=== PATIENT | female | born 1950 | race Caucasian/White ===

== ENCOUNTER 2017-01-19 13:19 | Emergency (ER) | payer MEDICARE, OTHER ==
--- NOTE | 2017-01-19 13:42 | ERPHSYRPT ---
- History of Present Illness Time Seen by Provider: 01/19/17 13:40 Historian: patient, family Exam Limitations: no limitations Patient Subjective Stated Complaint: PT STATES WHILE DOING HER HAIR TODAY SHE STARTED HAVING CHEST PAIN AND PAIN TO LEFT JAW, NAUSEA Triage Nursing Assessment: PT ALERT, ARRIVED PER WC, RESP EASY, CHEST CLEAR, SKIN W/D/P, NO EDEMA Physician History: 66-year-old female with significant past medical history of coronary artery disease, status post stent placement 6 months ago, came to the emergency room with complaining of left-sided chest pain radiating to the left side of the neck and feeling like going to pass out. She denies any diaphoresis, nausea or vomiting. Patient has stent placement in May 2016. When patient came to the emergency room. Patient was chest pain-free and did not have any other symptoms. Timing/Duration: today Activities at Onset: activity Quality: burning Location: substernal Chest Pain Radiation: jaw, neck Severity of Pain-Max: mild Severity of Pain-Current: none Modifying Factors: Improves With: nothing Aspirin Treatment Today: 81 mg x 1 Allergies/Adverse Reactions: nitrofurantoin macrocrystalline [From Macrodantin] Allergy (Mild, Verified 01/19 13:28) morphine Adverse Reaction (Mild, Verified 01/19/17 13:28) Home Medications: Amlodipine Besylate [Norvasc] 2.5 mg PO DAILY 05/30/14 [History] Aspirin [Aspirin EC] 81 mg PO DAILY 05/30/14 [History] Atorvastatin Calcium [Lipitor] 10 mg PO DAILY 05/30/14 [History] Clopidogrel Bisulfate 75 mg [PLAVIX 75 MG Tablet] 75 mg PO DAILY 05/30/14 [History] Potassium Chloride 10 Meq Tab* [Klor Con 10 MEQ] 10 meq PO DAILY 05/30/14 [ History] Hx Tetanus, Diphtheria Vaccination/Date Given: Yes Hx Influenza Vaccination/Date Given: No Hx Pneumococcal Vaccination/Date Given: No Immunizations Up to Date: Yes - Review of Systems Constitutional: No Fever, No Chills Eyes: No Symptoms Ears, Nose, & Throat: No Symptoms Respiratory: No Cough, No Dyspnea Cardiac: No Chest Pain, No Edema, No Syncope Abdominal/Gastrointestinal: No Abdominal Pain, No Nausea, No Vomiting, No Diarrhea Genitourinary Symptoms: No Dysuria Musculoskeletal: No Back Pain, No Neck Pain Skin: No Rash Neurological: No Dizziness, No Focal Weakness, No Sensory Changes Psychological: No Symptoms Endocrine: No Symptoms All Other Systems: Reviewed and Negative - Past Medical History Pertinent Past Medical History: Yes Neurological History: No Pertinent History ENT History: No Pertinent History Cardiac History: Coronary Artery Disease, Hypertension, Myocardial Infarction ( [place]) Respiratory History: No Pertinent History Endocrine Medical History: No Pertinent History Musculoskeletal History: No Pertinent History GI Medical History: No Pertinent History History: No Pertinent History Psycho-Social History: No Pertinent History Female Reproductive Disorders: No Pertinent History Other Medical History: recently SOB schedlued for pulmonary function test tomorrow - Past Surgical History Past Surgical History: Yes Neuro Surgical History: No Pertinent History Cardiac: Cardiac Catheterization, Cardiac Stent Respiratory: No Pertinent History Gastrointestinal: No Pertinent History Genitourinary: No Pertinent History Musculoskeletal: Orthopedic Surgery Female Surgical History: Hysterectomy Other Surgical History: ORTHO CHILD--LT ARM - Social History Smoking Status: Never smoker Exposure to second hand smoke: No Drug Use: none Patient Lives Alone: No - Female History Hx Last Menstrual Period: POST - Nursing Vital Signs Nursing Vital Signs: Initial Vital Signs Temperature 98.2 F 01/19/17 13:20 Pulse Rate 67 01/19/17 13:20 Blood Pressure 187/91 01/19/17 13:20 O2 Sat by Pulse Oximetry 96 01/19/17 13:20 Pain Scale Pain Intensity 5 - Physical Exam General Appearance: no apparent distress, alert Eye Exam: PERRL/EOMI, eyes nml inspection Ears, Nose, Throat Exam: normal ENT inspection, moist mucous membranes Neck Exam: normal inspection, non-tender, supple, full range of motion Respiratory Exam: normal breath sounds, lungs clear, No respiratory distress Cardiovascular Exam: regular rate/rhythm, normal heart sounds Gastrointestinal/Abdomen Exam: soft, No tenderness, No mass Back Exam: normal inspection, No CVA tenderness, No vertebral tenderness Extremity Exam: normal inspection, normal range of motion Neurologic Exam: alert, oriented x 3, cooperative, normal mood/affect, sensation nml, No motor deficits Skin Exam: normal color, warm, dry SpO2: 96 Oxygen Delivery: Room Air - Course Nursing assessment & vital signs reviewed: Yes EKG Interpreted by Me: Sinus Rhythm - Radiology Exams Chest X-ray Interpretation: Reviewed by me, Negative Ordered Tests: Active Orders 24 hr Category Date Time Status Benefits Officer STAT Care 01/19/17 13:34 Active Clean Catch Urine Specimen STAT Care 01/19/17 14:36 Active EKG-ER Only STAT Care 01/19/17 13:33 Active Oxygen-ED Only NASAL CANNULA 2 lpm Care 01/19/17 13:33 Active CHEST 1 VIEW (PORTABLE) Stat Exams 01/19/17 13:34 Taken CBC W DIFF Stat Lab 01/19/17 13:30 Completed CMP Stat Lab 01/19/17 13:30 Completed NT PRO BNP Stat Lab 01/19/17 13:30 Completed TROPONIN Q3H Lab 01/19/17 13:45 Completed TROPONIN Q3H Lab 01/19/17 16:45 Ordered TROPONIN Q3H Lab 01/19/17 19:45 Ordered TROPONIN Q3H Lab 01/19/17 22:45 Ordered TROPONIN Q3H Lab 01/20/17 01:45 Ordered UA W/ MICROSCOPIC Stat Lab 01/19/17 15:17 Completed Medication Summary Generic Name Dose Route Start Last Admin Trade Name Freq PRN Reason Stop Dose Admin Sodium Chloride 1,000 mls @ 100 mls/hr 01/19/17 13:45 01/19/17 14:02 Sodium Chloride 0.9% 1000 Ml IV 02/18/17 13:44 100 mls/hr .Q10H CINTHYA Administration Lab/Rad Data: Laboratory Result Diagrams 01/19/17 13:30 01/19/17 13:30 Laboratory Results 01/19/17 01/19/17 01/19/17 Range/Units 15:17 13:45 13:30 WBC (4.0-10.5) K/mm3 RBC (4.1-5.4) M/mm3 Hgb (12.0-16.0) gm/dl Hct (35-47) % MCV (78-100) fl MCH (26-32) pg MCHC (32-36) g/dl RDW (11.5-14.0) % Plt Count (150-450) K/mm3 MPV (6-9.5) fl Gran % (36.0-66.0) % Lymphocytes % (24.0-44.0) % Monocytes % (0.0-12.0) % Eosinophils % (0.00-5.0) % Basophils % (0.0-0.4) % Basophils # (0-0.4) Sodium 141 (136-145) mEq/L Potassium 4.3 (3.5-5.1) mEq/L Chloride 105 (98-107) mEq/L Carbon Dioxide 28.0 (21-32) mEq/L Anion Gap 12.5 (5-15) MEQ/L BUN 17 (9-20) mg/dL Creatinine 0.78 (0.55-1.30) mg/dl Estimated GFR > 60 ML/MIN Glucose 91 (70-110) MG/DL Calcium 9.3 (8.5-10.1) mg/dL Total Bilirubin 0.30 (0.2-1.0) mg/dL AST 24 (15-37) U/L ALT 36 (12-78) U/L Alkaline Phosphatase 113 (46-116) U/L Troponin I < 0.017 (0.000-0.056) ng/ml NT-Pro-B Natriuret Pep 210 H (0-125) pg/ml Serum Total Protein 7.8 (6.4-8.2) gm/dL Albumin 4.3 (3.4-5.0) g/dL Ur Collection Type CLEAN CATCH Urine Color YELLOW (YELLOW) Urine Appearance CLEAR (CLEAR) Urine pH 7.0 (5-6) Ur Specific [place] 1.010 (1.005-1.025) Urine Protein NEGATIVE (Negative) Urine Ketones NEGATIVE (NEGATIVE) Urine Blood NEGATIVE (0-5) [place]/ul Urine Nitrite NEGATIVE (NEGATIVE) Urine Bilirubin NEGATIVE (NEGATIVE) Urine Urobilinogen NORMAL (0-1) mg/dL Ur Leukocyte Esterase 1+ (NEGATIVE) Urine Microscopic RBC 0-2 (0-2) /HPF Urine Microscopic WBC 2-5 (0-5) /HPF Ur Epithelial Cells FEW (FEW) /HPF Urine Bacteria FEW (NEGATIVE) /HPF Urine Culture Reflexed NO (NO) Urine Glucose NEGATIVE (NEGATIVE) mg/dL Specimen Received 01-19 1515 01/19/17 Range/Units 13:30 WBC 6.0 (4.0-10.5) K/mm3 RBC 4.70 (4.1-5.4) M/mm3 Hgb 14.5 (12.0-16.0) gm/dl Hct 45.1 (35-47) % MCV 96.0 (78-100) fl MCH 30.9 (26-32) pg MCHC 32.2 (32-36) g/dl RDW 13.2 (11.5-14.0) % Plt Count 237 (150-450) K/mm3 MPV 10.1 H (6-9.5) fl Gran % 70.2 H (36.0-66.0) % Lymphocytes % 15.9 L (24.0-44.0) % Monocytes % 11.4 (0.0-12.0) % Eosinophils % 1.8 (0.00-5.0) % Basophils % 0.7 (0.0-0.4) % Basophils # 0.04 (0-0.4) Sodium (136-145) mEq/L Potassium (3.5-5.1) mEq/L Chloride (98-107) mEq/L Carbon Dioxide (21-32) mEq/L Anion Gap (5-15) MEQ/L BUN (9-20) mg/dL Creatinine (0.55-1.30) mg/dl Estimated GFR ML/MIN Glucose (70-110) MG/DL Calcium (8.5-10.1) mg/dL Total Bilirubin (0.2-1.0) mg/dL AST (15-37) U/L ALT (12-78) U/L Alkaline Phosphatase (46-116) U/L Troponin I (0.000-0.056) ng/ml NT-Pro-B Natriuret Pep (0-125) pg/ml Serum Total Protein (6.4-8.2) gm/dL Albumin (3.4-5.0) g/dL Ur Collection Type Urine Color (YELLOW) Urine Appearance (CLEAR) Urine pH (5-6) Ur Specific [place] (1.005-1.025) Urine Protein (Negative) Urine Ketones (NEGATIVE) Urine Blood (0-5) [place]/ul Urine Nitrite (NEGATIVE) Urine Bilirubin (NEGATIVE) Urine Urobilinogen (0-1) mg/dL Ur Leukocyte Esterase (NEGATIVE) Urine Microscopic RBC (0-2) /HPF Urine Microscopic WBC (0-5) /HPF Ur Epithelial Cells (FEW) /HPF Urine Bacteria (NEGATIVE) /HPF Urine Culture Reflexed (NO) Urine Glucose (NEGATIVE) mg/dL Specimen Received - Progress Progress: improved Air Movement: good Blood Culture(s) Obtained: No Antibiotics given: No Counseled pt/family regarding: lab results, diagnosis, need for follow-up, rad results - Departure Time of Disposition: 15:37 Departure Disposition: Home Clinical Impression: Chest pain radiating to jaw UTI (urinary tract infection) Qualifiers: Urinary tract infection type: acute cystitis Hematuria presence: without hematuria Qualified Code(s): N30.00 - Acute cystitis without hematuria Condition: Stable Critical Care Time: Yes Critical Care Time(excluding separately billable procedures): 30-74 minutes Referrals: BECKY ESTES MD [Primary Care Provider] - Instructions: Angina Additional Instructions: URINARY TRACT INFECTION 1. You will need to drink plenty of fluids in order to keep your urinary system flushed. These fluids should mainly consist of water and juices. 2. Take medications as directed. You need to completely finish any antiobiotic prescription given. 3. Try to avoid coffee, tea, alcohol, and seasoned foods as they may cause bladder irritation. 4. If signs and symptoms persist after 3-4 days, you will need to follow up with your family physician. 5. Female Patients: A. Avoid intercourse for 3-4 days. B. Empty bladder before and after intercourse to reduce risk of re- infection. C. After emptying bladder, wipe from front to back to reduce the risk of re- infection. Please follow the instructions given to you. Please take your medication as prescribed if given. If symptoms recur or get worse, come back to the emergency room if you cannot reach your primary care physician, or call your primary care physician for an appointment. Again if your symptoms get worse, come back to the emergency room. Thanks for visiting emergency room, and let us take care of you. Prescriptions: Levofloxacin [Levaquin] 250 mg PO DAILY #5 tablet
[2017-01-19 13:45] LABS: BASOPHIL % 0.7 % (0.0-0.4); Eosinophil % 1.8 % (0.00-5.0); Granulocytes % 70.2 % (36.0-66.0); Lymphocytes % 15.9 % (24.0-44.0); Mean Corpuscular Hemoglobin 30.9 pg (26-32); Mean Platelet Volume 10.1 fl (6-9.5); Monocytes % 11.4 % (0.0-12.0); Platelet Count 237 K/mm3 (150-450); Red Cell Distribution Width 13.2 % (11.5-14.0)
[2017-01-19] MEDS ORDERED: Sodium Chloride 0.9% 1000 ML 1,000 ML IV SCH (13:45)
[2017-01-19] MEDS ORDERED: Sodium Chloride 0.9% 1000 ML 1,000 ML ONE (13:56)
[2017-01-19 14:04] LABS: ALBUMIN 4.3 g/dL (3.4-5.0); ALKALINE PHOSPHATASE 113 U/L (46-116); ANION GAP 12.5 MEQ/L (5-15); BLOOD UREA NITROGEN 17 mg/dL (9-20); CHLORIDE 105 mEq/L (98-107); Glucose 91 MG/DL (70-110); Potassium 4.3 mEq/L (3.5-5.1); SGOT/AST 24 U/L (15-37); SGPT/ALT 36 U/L (12-78); SODIUM 141 mEq/L (136-145); Total Protein 7.8 gm/dL (6.4-8.2)
[2017-01-19 15:00] VITALS: BP 156/76; PULSE 76
[2017-01-19 15:18] LABS: Bilirubin NEGATIVE (NEGATIVE); Blood NEGATIVE Ery/ul (0-5); COMPLETE URINE MICROSCOPIC? YES; Collection Type CLEAN CATCH; Glucose NEGATIVE (NEGATIVE); Leukocyte Esterase 1+ (NEGATIVE)
[2017-01-19 15:27] LABS: ADD URINE CULTURE? NO (NO); Bacteria FEW /HPF (NEGATIVE); Epithelial Cells FEW /HPF (FEW)
[2017-01-19 15:38] VITALS: O2SAT 96
--- NOTE | 2017-01-19 21:46 | XRAY ---
Indication: Chest pain. Comparison: July 19, 2015. Portable chest again demonstrates minimal bibasilar atelectasis/scarring and right hemidiaphragm elevation. Remaining lungs clear. Heart is not enlarged. Vascularity normal. Bony thorax intact. Impression: Stable nonacute chest with chronic features.
== END 2017-01-19 15:48 | disposition home or self-care (01) ==
LOC: ED 13:19
DX: N30.00 Acute cystitis without hematuria (principal); R07.9 Chest pain, unspecified; R68.84 Jaw pain; I25.2 Old myocardial infarction; I25.10 Atherosclerotic heart disease of native coronary artery without angina pectoris; I10 Essential (primary) hypertension; Z79.899 Other long term (current) drug therapy
CPT/HCPCS: 36415; 71010; 80053; 81000; 83880; 84484; 85025; 93005; 93041; 96360; 96365; 99284

== ENCOUNTER 2017-11-01 21:03 | Emergency (ER) | payer MEDICARE, OTHER | END 2017-11-01 21:09 | disposition left against medical advice (07) | LOC: ED 21:03 | DX: Z53.21 Procedure and treatment not carried out due to patient leaving prior to being seen by health care provider (principal) | CPT/HCPCS: 99281 ==

== ENCOUNTER 2018-01-16 12:18 | Emergency (ER) | payer MEDICARE, OTHER ==
--- NOTE | 2018-01-16 13:00 | ERPHSYRPT ---
- History of Present Illness Time Seen by Provider: 01/16/18 12:54 Source: patient Exam Limitations: no limitations Patient Subjective Stated Complaint: low abdominal pain x 3 days with c/o urinary symptoms of frequency and discomfort when urinating Triage Nursing Assessment: alert and in no distress. staets pain to lower abd x 3 days has dusurai and frequency. was seen at [facility] they sent her here to ER for further evaluation. pain on palpation. did have a u/a at [facility] prior to coming here. denies flank pain here. no nausea /vomiting. denies fever. Physician History: The patient is a 67-year-old female complaining of urinary discomfort and decreased urine output for 3 days. She has pain in the suprapubic region that has been worsening. She has some low back pain as well. She thinks she has a UTI. She went to [facility] and was sent here because of their concern for a kidney stone. Her past medical history is significant for kidney stone, UTI, hypertension, high cholesterol, CAD, and cardiac stents. Timing/Duration: day(s) (3), gradual onset, worse Activites at Onset: none Quality: aching Onset Location: abdominal pain (suprapubic) Pain Radiation: none Severity of Pain-Max: moderate Severity of Pain-Current: moderate Prior abdominal problems: UTI Sexual intercourse history: non-contributory Modifying Factors: Improves With: nothing Associated Symptoms: abdominal pain, dysuria Allergies/Adverse Reactions: nitrofurantoin macrocrystalline [From Macrodantin] Allergy (Mild, Verified 01/16 13:01) morphine Adverse Reaction (Mild, Verified 01/16/18 13:01) Home Medications: Amlodipine Besylate [Norvasc] 2.5 mg PO DAILY 05/30/14 [History] Aspirin [Aspirin EC] 81 mg PO DAILY 05/30/14 [History] Atorvastatin Calcium [Lipitor] 10 mg PO DAILY 05/30/14 [History] Clopidogrel Bisulfate 75 mg [PLAVIX 75 MG Tablet] 75 mg PO DAILY 05/30/14 [History] Potassium Chloride 10 Meq Tab* [Klor Con 10 MEQ] 10 meq PO DAILY 05/30/14 [ History] Hx Tetanus, Diphtheria Vaccination/Date Given: Yes Hx Influenza Vaccination/Date Given: No Hx Pneumococcal Vaccination/Date Given: No - Review of Systems Constitutional: No Fever, No Chills Eyes: No Symptoms Ears, Nose, & Throat: No Symptoms Respiratory: No Cough, No Dyspnea Cardiac: No Chest Pain, No Edema, No Syncope Abdominal/Gastrointestinal: Abdominal Pain, No Nausea, No Vomiting, No Diarrhea Genitourinary Symptoms: Dysuria Musculoskeletal: No Back Pain, No Neck Pain Skin: No Rash Neurological: No Dizziness, No Focal Weakness, No Sensory Changes Psychological: No Symptoms Endocrine: No Symptoms Hematologic/Lymphatic: No Symptoms Immunological/Allergic: No Symptoms All Other Systems: Reviewed and Negative - Past Medical History Pertinent Past Medical History: Yes Neurological History: No Pertinent History ENT History: No Pertinent History Cardiac History: Coronary Artery Disease, Hypertension, Myocardial Infarction ( [place]) Respiratory History: No Pertinent History Endocrine Medical History: No Pertinent History Musculoskeletal History: No Pertinent History GI Medical History: No Pertinent History History: No Pertinent History Psycho-Social History: No Pertinent History Female Reproductive Disorders: No Pertinent History Other Medical History: recently SOB schedlued for pulmonary function test tomorrow - Past Surgical History Past Surgical History: Yes Neuro Surgical History: No Pertinent History Cardiac: Cardiac Catheterization, Cardiac Stent Respiratory: No Pertinent History Gastrointestinal: No Pertinent History Genitourinary: No Pertinent History Musculoskeletal: Orthopedic Surgery Female Surgical History: Hysterectomy Other Surgical History: ORTHO CHILD--LT ARM - Social History Smoking Status: Never smoker Exposure to second hand smoke: No Drug Use: none Patient Lives Alone: No - Female History Hx Now: No - Nursing Vital Signs Nursing Vital Signs: Initial Vital Signs Temperature 97.4 F 01/16/18 12:34 Pulse Rate 68 01/16/18 12:34 Respiratory Rate 18 01/16/18 12:34 Blood Pressure 156/78 01/16/18 12:34 O2 Sat by Pulse Oximetry 98 01/16/18 12:34 Pain Scale Pain Intensity 5 - Physical Exam General Appearance: no apparent distress, alert Eye Exam: PERRL/EOMI, eyes nml inspection Ears, Nose, Throat Exam: normal ENT inspection, TMs normal, pharynx normal, moist mucous membranes Neck Exam: normal inspection, non-tender, supple, full range of motion Respiratory Exam: normal breath sounds, lungs clear, No respiratory distress Cardiovascular Exam: regular rate/rhythm, normal heart sounds, normal peripheral pulses Gastrointestinal/Abdomen Exam: tenderness (suprapubic) Pelvic Exam: not done Rectal Exam: not done Back Exam: normal inspection, normal range of motion, No CVA tenderness, No vertebral tenderness Extremity Exam: normal inspection, normal range of motion, pelvis stable Neurologic Exam: alert, oriented x 3, cooperative, customer service voice II-XII nml as tested, normal mood/affect, sensation nml, No motor deficits Skin Exam: normal color, warm, dry Lymphatic Exam: No adenopathy SpO2 Interpretation: normal SpO2: 98 Oxygen Delivery: Room Air - CT Exams Abdomen/Pelvis CT Interpretation: Tele-radiologist Report (per Dr Marcelo), diverticulitis Ordered Tests: Active Orders 24 hr Category Date Time Status Clean Catch Urine Specimen STAT Care 01/16/18 13:06 Active ABDOMEN AND PELVIS W/0 CONTRAS [CT] Stat Exams 01/16/18 14:55 Completed BMP Stat Lab 01/16/18 13:40 Completed CBC W DIFF Stat Lab 01/16/18 13:40 Completed CULTURE,URINE Stat Lab 01/16/18 11:53 Received UA W/RFX UR CULTURE Stat Lab 01/16/18 11:53 Completed Lab/Rad Data: Laboratory Result Diagrams 01/16/18 13:40 01/16/18 13:40 Laboratory Results 01/16/18 01/16/18 01/16/18 Range/Units 13:40 13:40 11:53 WBC 7.6 (4.0-10.5) K/mm3 RBC 4.12 (4.1-5.4) M/mm3 Hgb 12.9 (12.0-16.0) gm/dl Hct 40.0 (35-47) % MCV 97.1 (78-100) fl MCH 31.3 (26-32) pg MCHC 32.3 (32-36) g/dl RDW 13.8 (11.5-14.0) % Plt Count 204 (150-450) K/mm3 MPV 10.2 H (6-9.5) fl Gran % 77.4 H (36.0-66.0) % Eos # (Auto) 0.08 (0-0.5) Absolute Lymphs (auto) 0.83 L (1.0-4.6) Absolute Monos (auto) 0.74 (0.0-1.3) Lymphocytes % 10.9 L (24.0-44.0) % Monocytes % 9.7 (0.0-12.0) % Eosinophils % 1.0 (0.00-5.0) % Basophils % 1.0 (0.0-0.4) % Absolute Granulocytes 5.91 (1.4-6.9) Basophils # 0.08 (0-0.4) Sodium 141 (137-145) mmol/L Potassium 4.1 (3.5-5.1) mmol/L Chloride 106 (98-107) mmol/L Carbon Dioxide 25 (22-30) mmol/L Anion Gap 14.1 (5-15) MEQ/L BUN 15 (7-17) mg/dL Creatinine 0.67 (0.52-1.04) mg/dL Estimated GFR > 60.0 ML/MIN Glucose 95 (74-106) mg/dL Calcium 9.1 (8.4-10.2) mg/dL Urine Color YELLOW (YELLOW) Urine Appearance SLIGHTLY CLOUDY (CLEAR) Urine pH 6.0 (5-6) Ur Specific [place] 1.014 (1.005-1.025) Urine Protein NEGATIVE (Negative) Urine Ketones NEGATIVE (NEGATIVE) Urine Blood MODERATE (0-5) [place]/ul Urine Nitrite NEGATIVE (NEGATIVE) Urine Bilirubin NEGATIVE (NEGATIVE) Urine Urobilinogen NEGATIVE (0-1) mg/dL Ur Leukocyte Esterase NEGATIVE (NEGATIVE) Urine WBC (Auto) 3-5 (0-5) /HPF Urine RBC (Auto) 6-10 (0-2) /HPF U Epithel Cells (Auto) RARE (FEW) /HPF Urine Bacteria (Auto) FEW (NEGATIVE) /HPF Urine Mucus (Auto) SLIGHT (NEGATIVE) /HPF Urine Culture Reflexed YES (NO) Urine Glucose NEGATIVE (NEGATIVE) mg/dL - Progress Counseled pt/family regarding: diagnosis, need for follow-up, rad results - Departure Time of Disposition: 15:40 Departure Disposition: Home Clinical Impression: Diverticulitis Condition: Stable Critical Care Time: No Referrals: BECKY ESTES MD [Primary Care Provider] - Additional Instructions: You have diverticulitis of your colon. You were given Rocephin 1 g by IM in the ER. Take Flagyl 500 mg 3 times a day for 10 days. Take ciprofloxacin 500 mg 2 times a day for 10 days. Follow-up with your primary medical doctor next week. Prescriptions: Ciprofloxacin [Cipro 500 MG] 1 tab PO BID #20 tablet Metronidazole [Flagyl] 500 mg PO TID #300 tablet
[2018-01-16 13:22] LABS: Appearance SLIGHTLY CLOUDY (CLEAR); Bilirubin NEGATIVE (NEGATIVE); Blood MODERATE Ery/ul (0-5); Glucose NEGATIVE (NEGATIVE); Ketones NEGATIVE (NEGATIVE); Leukocyte Esterase NEGATIVE (NEGATIVE); Nitrite NEGATIVE (NEGATIVE); Protein,Urine Dip NEGATIVE (Negative); Specific Gravity 1.014 (1.005-1.025); Urobilinogen NEGATIVE mg/dL (0-1)
[2018-01-16 13:50] LABS: Basophil (Absolute #) 0.08 (0-0.4); Eosinophil (Absolute #) 0.08 (0-0.5); Granulocyte Absolute (ANC) 5.91 (1.4-6.9); Granulocytes % 77.4 % (36.0-66.0); Hemoglobin 12.9 gm/dl (12.0-16.0); Lymphocyte (Absolute #) 0.83 (1.0-4.6); Lymphocytes % 10.9 % (24.0-44.0); Mean Cell Volume 97.1 fl (78-100); Mean Corpuscular Hemoglobin 31.3 pg (26-32); Mean Corpuscular Hgb Concent. 32.3 g/dl (32-36); Mean Platelet Volume 10.2 fl (6-9.5); Monocyte (Absolute #) 0.74 (0.0-1.3); Monocytes % 9.7 % (0.0-12.0); Platelet Count 204 K/mm3 (150-450); Red Blood Count 4.12 M/mm3 (4.1-5.4); Red Cell Distribution Width 13.8 % (11.5-14.0); White Blood Count 7.6 K/mm3 (4.0-10.5)
[2018-01-16 14:02] LABS: ANION GAP 14.1 MEQ/L (5-15); BLOOD UREA NITROGEN 15 mg/dL (7-17); CHLORIDE 106 mmol/L (98-107); Calcium 9.1 mg/dL (8.4-10.2); Carbon Dioxide 25 mmol/L (22-30); Creatinine 1 0.67 mg/dL (0.52-1.04); Glucose 95 mg/dL (74-106); Potassium 4.1 mmol/L (3.5-5.1); SODIUM 141 mmol/L (137-145)
[2018-01-16 14:04] VITALS: PULSE 65
--- NOTE | 2018-01-16 15:25 | XRAY ---
Indication: Constipation and difficulty urinating. Multiple contiguous axial images obtained through the abdomen and pelvis without contrast as ordered. Comparison: May 30, 2014. Lung bases again demonstrates mild fibrosis/scarring and right hemidiaphragm elevation. No infiltrate or effusion. Heart is not enlarged. Stable small hiatal hernia. Noncontrasted stomach and bowel loops appear nonobstructed. Again mild diffuse scattered colonic fecal debris throughout. There is now mild sigmoid diverticulosis with distal sigmoid/rectal wall thickening and stranding favoring acute diverticulitis/proctitis. Small free fluid presumed reactive. No walled off fluid collection or free air. Stable 2 subcentimeter gallstones and hysterectomy. Remaining liver, gallbladder, pancreas, spleen, adrenal glands, kidneys, ureters, and bladder appear unremarkable for noncontrast exam. Again minimal aortoiliac calcifications without AAA. Osseous structures intact with minimal degenerative changes throughout the spine. No ventral or inguinal hernias. Impression: 1. New sigmoid diverticulosis with distal sigmoid acute diverticulitis/proctitis and small reactive free fluid. 2. Again fecal stasis, gallstones, small hiatal hernia, and right hemidiaphragm elevation. CT DI 23.57
[2018-01-16] MEDS ORDERED: Rocephin 1000 MG INJ IM ONE (15:40)
[2018-01-16 15:42] VITALS: O2SAT 98
[2018-01-16] MEDS ORDERED: Rocephin 1000 MG INJ ONE (15:43)
[2018-01-16 16:18] VITALS: BP 176/95
== END 2018-01-16 16:18 | disposition home or self-care (01) ==
LOC: ED 12:18
DX: K57.32 Diverticulitis of large intestine without perforation or abscess without bleeding (principal); Z79.01 Long term (current) use of anticoagulants; Z79.899 Other long term (current) drug therapy
CPT/HCPCS: 36415; 74176; 80048; 81001; 85025; 87086; 96372; 99284; J0696

== ENCOUNTER 2018-07-04 20:43 | Emergency (ER) | payer MEDICARE, OTHER ==
[2018-07-04] MEDS ORDERED: Sodium Chloride 0.9% 1000 ML 1,000 ML IV STA (21:25)
[2018-07-04] MEDS ORDERED: Zofran 4 MG/2 ML VIAL IV ONE (21:25)
--- NOTE | 2018-07-04 21:33 | ERPHSYRPT ---
- History of Present Illness Time Seen by Provider: 07/04/18 21:25 Historian: patient, family Exam Limitations: no limitations Patient Subjective Stated Complaint: pt states she has been feeling sick to her stomach since friday and began having lt lower abd pain approx 15 min prior to arrival at er.states she has hx of diverticulitis and this feels like it has in the past. Triage Nursing Assessment: pt alert and oriented, asnwers questions approp. pt ambulatory with steady gait noted. respirations nonlagored with lungs cta. abd soft, tenderness ntoed to lt side. bowel osunds present in all 4 quads. Physician History: 68 y/o white female with h/o diverticulitis X1 in past, presents with left lower quadrant abd pain and assoc nausea and decreased appetite. sx for 2 days. 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 several episodes of diarrhea. pt has taken tylenol with codeine and vicodin in past. however, pt does not want any narcotics at this time. Timing/Duration: day(s) (2 ) Activities at Onset: none Quality: sharpness, stabbing Abdominal Pain Onset Location: LLQ Pain Radiation: no radiation Severity of Pain-Max: moderate Severity of Pain-Current: mild Modifying Factors: Improves With: nothing Associated Symptoms: diarrhea, loss of appetite, nausea, No chest pain, No diaphoresis, No shortness of breath, No vomiting Previous symptoms: same symptoms as today Allergies/Adverse Reactions: nitrofurantoin macrocrystalline [From Macrodantin] Allergy (Mild, Verified 07/04 21:13) morphine Adverse Reaction (Mild, Verified 07/04/18 21:13) Home Medications: Aspirin [Aspirin EC] 81 mg PO DAILY 05/30/14 [History] Atorvastatin Calcium [Lipitor] 10 mg PO DAILY 05/30/14 [History] Clopidogrel Bisulfate 75 mg [PLAVIX 75 MG Tablet] 75 mg PO DAILY 05/30/14 [History] Potassium Chloride 10 Meq Tab* [Klor Con 10 MEQ] 10 meq PO DAILY 05/30/14 [ History] Carvedilol 6.25 mg [Coreg 6.25 MG] 6.25 mg PO BID 07/04/18 [History] Hx Tetanus, Diphtheria Vaccination/Date Given: Yes Hx Influenza Vaccination/Date Given: No Hx Pneumococcal Vaccination/Date Given: No Immunizations Up to Date: Yes - Review of Systems Constitutional: No Symptoms Eyes: No Symptoms Ears, Nose, & Throat: No Symptoms Respiratory: No Symptoms Cardiac: No Symptoms Abdominal/Gastrointestinal: Abdominal Pain (llq), Nausea, Diarrhea, Appetite Changes, No Vomiting Genitourinary Symptoms: No Symptoms Musculoskeletal: No Symptoms Skin: No Symptoms Neurological: No Symptoms Psychological: No Symptoms Endocrine: No Symptoms Hematologic/Lymphatic: No Symptoms Immunological/Allergic: No Symptoms All Other Systems: Reviewed and Negative - Past Medical History Pertinent Past Medical History: Yes Neurological History: No Pertinent History ENT History: No Pertinent History Cardiac History: Coronary Artery Disease, Hypertension, Myocardial Infarction ( [place]) Respiratory History: No Pertinent History Endocrine Medical History: No Pertinent History Musculoskeletal History: No Pertinent History GI Medical History: Diverticulitis History: No Pertinent History Psycho-Social History: No Pertinent History Female Reproductive Disorders: No Pertinent History Other Medical History: recently SOB schedlued for pulmonary function test tomorrow - Past Surgical History Past Surgical History: Yes Neuro Surgical History: No Pertinent History Cardiac: Cardiac Catheterization, Cardiac Stent Respiratory: No Pertinent History Gastrointestinal: No Pertinent History Genitourinary: No Pertinent History Musculoskeletal: Orthopedic Surgery Female Surgical History: Hysterectomy Other Surgical History: ORTHO CHILD--LT ARM - Social History Smoking Status: Never smoker Exposure to second hand smoke: No Drug Use: none Patient Lives Alone: No - Nursing Vital Signs Nursing Vital Signs: Initial Vital Signs Temperature 97.5 F 07/04/18 20:51 Pulse Rate 77 07/04/18 20:51 Respiratory Rate 20 07/04/18 20:51 Blood Pressure 185/89 07/04/18 20:51 O2 Sat by Pulse Oximetry 95 07/04/18 20:51 Pain Scale Pain Intensity 0 - Physical Exam General Appearance: no apparent distress, alert, anxiety Eye Exam: PERRL/EOMI Ears, Nose, Throat Exam: normal ENT inspection, moist mucous membranes Neck Exam: normal inspection, non-tender, supple, full range of motion Respiratory Exam: normal breath sounds, lungs clear, airway intact, No chest tenderness, No respiratory distress Cardiovascular Exam: regular rate/rhythm, normal heart sounds, normal peripheral pulses Gastrointestinal/Abdomen Exam: soft, normal bowel sounds, tenderness (llq), guarding, No rebound Pelvic Exam: not done Rectal Exam: not done Back Exam: normal inspection, normal range of motion, No CVA tenderness, No vertebral tenderness Extremity Exam: normal inspection, normal range of motion, pelvis stable Neurologic Exam: alert, oriented x 3, cooperative, morgue keeper II-XII nml as tested Skin Exam: normal color, warm, dry Lymphatic Exam: adenopathy SpO2 Interpretation: normal SpO2: 95 O2 Delivery: Room Air - Course Nursing assessment & vital signs reviewed: Yes Ordered Tests: Active Orders 24 hr Category Date Time Status IV Insertion STAT Care 07/04/18 21:25 Active ABDOMEN AND PELVIS W/0 CONTRAS [CT] Stat Exams 07/04/18 21:30 Taken AMYLASE Stat Lab 07/04/18 22:57 Completed CBC W DIFF Stat Lab 07/04/18 22:57 Completed CMP Stat Lab 07/04/18 22:57 Completed CULTURE,URINE Stat Lab 07/04/18 23:09 Received LIPASE Stat Lab 07/04/18 22:57 Completed Lactic Acid Stat Lab 07/04/18 21:57 Completed UA W/RFX UR CULTURE Stat Lab 07/04/18 23:09 Completed Medication Summary Generic Name Dose Route Start Last Admin Trade Name Freq PRN Reason Stop Dose Admin Ciprofloxacin 500 mg 07/05/18 00:02 Cipro 500 Mg PO 07/05/18 00:03 STAT ONE Metronidazole 500 mg 07/05/18 00:02 Flagyl 500 Mg PO 07/05/18 00:03 STAT ONE Discontinued Medications Generic Name Dose Route Start Last Admin Trade Name Freq PRN Reason Stop Dose Admin Sodium Chloride 1,000 mls @ 999 mls/hr 07/04/18 21:25 07/04/18 22:02 Sodium Chloride 0.9% 1000 Ml IV 07/04/18 22:25 999 mls/hr .Q1H1M STA Administration Sodium Chloride Confirm 07/04/18 22:01 Sodium Chloride 0.9% 1000 Ml Administered 07/04/18 22:02 Dose 1,000 mls @ ud .ROUTE .STK-MED ONE Ondansetron HCl 4 mg 07/04/18 21:25 07/04/18 22:02 Zofran 4 Mg/2 Ml Vial IV 07/04/18 21:26 4 mg STAT ONE Administration Ondansetron HCl Confirm 07/04/18 22:01 Zofran 4 Mg/2 Ml Vial Administered 07/04/18 22:02 Dose 4 mg .ROUTE .STK-MED ONE Lab/Rad Data: Laboratory Result Diagrams 07/04/18 22:57 07/04/18 22:57 Laboratory Results 07/04/18 07/04/18 07/04/18 Range/Units 23:09 22:57 22:57 WBC 7.0 (4.0-10.5) K/mm3 RBC 4.38 (4.1-5.4) M/mm3 Hgb 13.8 (12.0-16.0) gm/dl Hct 42.9 (35-47) % MCV 97.9 (78-100) fl MCH 31.5 (26-32) pg MCHC 32.2 (32-36) g/dl RDW 13.6 (11.5-14.0) % Plt Count 225 (150-450) K/mm3 MPV 10.8 H (6-9.5) fl Gran % 67.8 H (36.0-66.0) % Eos # (Auto) 0.16 (0-0.5) Absolute Lymphs (auto) 1.31 (1.0-4.6) Absolute Monos (auto) 0.73 (0.0-1.3) Lymphocytes % 18.8 L (24.0-44.0) % Monocytes % 10.5 (0.0-12.0) % Eosinophils % 2.3 (0.00-5.0) % Basophils % 0.6 (0.0-0.4) % Absolute Granulocytes 4.74 (1.4-6.9) Basophils # 0.04 (0-0.4) Sodium 143 (137-145) mmol/L Potassium 3.6 (3.5-5.1) mmol/L Chloride 108 H (98-107) mmol/L Carbon Dioxide 26 (22-30) mmol/L Anion Gap 12.7 (5-15) MEQ/L BUN 22 H (7-17) mg/dL Creatinine 0.77 (0.52-1.04) mg/dL Estimated GFR > 60.0 ML/MIN Glucose 151 H (74-106) mg/dL Lactic Acid (0.4-2.0) Calcium 9.1 (8.4-10.2) mg/dL Total Bilirubin 0.30 (0.2-1.3) mg/dL AST 28 (14-36) U/L ALT 23 (0-35) U/L Alkaline Phosphatase 87 (38-126) U/L Serum Total Protein 7.1 (6.3-8.2) g/dL Albumin 4.1 (3.5-5.0) g/dL Amylase 64 (30-110) U/L Lipase 45 (23-300) U/L Urine Color YELLOW (YELLOW) Urine Appearance CLEAR (CLEAR) Urine pH 5.0 (5-6) Ur Specific [place] 1.018 (1.005-1.025) Urine Protein NEGATIVE (Negative) Urine Ketones NEGATIVE (NEGATIVE) Urine Blood SMALL (0-5) [place]/ul Urine Nitrite NEGATIVE (NEGATIVE) Urine Bilirubin NEGATIVE (NEGATIVE) Urine Urobilinogen NEGATIVE (0-1) mg/dL Ur Leukocyte Esterase SMALL (NEGATIVE) Urine WBC (Auto) 0-2 (0-5) /HPF Urine RBC (Auto) 0-2 (0-2) /HPF U Epithel Cells (Auto) RARE (FEW) /HPF Urine Bacteria (Auto) NONE (NEGATIVE) /HPF Urine Mucus (Auto) SLIGHT (NEGATIVE) /HPF Urine Culture Reflexed YES (NO) Urine Glucose NEGATIVE (NEGATIVE) mg/dL Slides for Path Review NO 07/04/18 Range/Units 21:57 WBC (4.0-10.5) K/mm3 RBC (4.1-5.4) M/mm3 Hgb (12.0-16.0) gm/dl Hct (35-47) % MCV (78-100) fl MCH (26-32) pg MCHC (32-36) g/dl RDW (11.5-14.0) % Plt Count (150-450) K/mm3 MPV (6-9.5) fl Gran % (36.0-66.0) % Eos # (Auto) (0-0.5) Absolute Lymphs (auto) (1.0-4.6) Absolute Monos (auto) (0.0-1.3) Lymphocytes % (24.0-44.0) % Monocytes % (0.0-12.0) % Eosinophils % (0.00-5.0) % Basophils % (0.0-0.4) % Absolute Granulocytes (1.4-6.9) Basophils # (0-0.4) Sodium (137-145) mmol/L Potassium (3.5-5.1) mmol/L Chloride (98-107) mmol/L Carbon Dioxide (22-30) mmol/L Anion Gap (5-15) MEQ/L BUN (7-17) mg/dL Creatinine (0.52-1.04) mg/dL Estimated GFR ML/MIN Glucose (74-106) mg/dL Lactic Acid 0.9 (0.4-2.0) Calcium (8.4-10.2) mg/dL Total Bilirubin (0.2-1.3) mg/dL AST (14-36) U/L ALT (0-35) U/L Alkaline Phosphatase (38-126) U/L Serum Total Protein (6.3-8.2) g/dL Albumin (3.5-5.0) g/dL Amylase (30-110) U/L Lipase (23-300) U/L Urine Color (YELLOW) Urine Appearance (CLEAR) Urine pH (5-6) Ur Specific [place] (1.005-1.025) Urine Protein (Negative) Urine Ketones (NEGATIVE) Urine Blood (0-5) [place]/ul Urine Nitrite (NEGATIVE) Urine Bilirubin (NEGATIVE) Urine Urobilinogen (0-1) mg/dL Ur Leukocyte Esterase (NEGATIVE) Urine WBC (Auto) (0-5) /HPF Urine RBC (Auto) (0-2) /HPF U Epithel Cells (Auto) (FEW) /HPF Urine Bacteria (Auto) (NEGATIVE) /HPF Urine Mucus (Auto) (NEGATIVE) /HPF Urine Culture Reflexed (NO) Urine Glucose (NEGATIVE) mg/dL Slides for Path Review - Progress Progress: pain not gone completely, re-examined Progress Note: 07/05/18 00:03 ct scan abd/pelvis-left sided colitis. no appendicitis Counseled pt/family regarding: lab results, diagnosis, need for follow-up, rad results - Departure Departure Disposition: Home Clinical Impression: Colitis Condition: Stable Critical Care Time: No Referrals: BECKY ESTES MD [Primary Care Provider] - Additional Instructions: drink plenty of fluids. follow up with primary doctor for further management Prescriptions: Ciprofloxacin [Cipro 500 MG] 500 mg PO BID #14 tablet Codeine Phosphate/APAP #3 [Tylenol #3 Tablet] 1 tab PO TID PRN #10 tablet PRN Reason: Pain Metronidazole 500 mg [Flagyl 500 MG] 500 mg PO TID #21 tablet
[2018-07-04] MEDS ORDERED: Sodium Chloride 0.9% 1000 ML 1,000 ML ONE (22:01)
[2018-07-04] MEDS ORDERED: Zofran 4 MG/2 ML VIAL ONE (22:01)
[2018-07-04 22:59] LABS: BASOPHIL % 0.6 % (0.0-0.4); Basophil (Absolute #) 0.04 (0-0.4); Eosinophil % 2.3 % (0.00-5.0); Eosinophil (Absolute #) 0.16 (0-0.5); Granulocyte Absolute (ANC) 4.74 (1.4-6.9); Granulocytes % 67.8 % (36.0-66.0); Hematocrit 42.9 % (35-47); Hemoglobin 13.8 gm/dl (12.0-16.0); Lymphocyte (Absolute #) 1.31 (1.0-4.6); Lymphocytes % 18.8 % (24.0-44.0); Mean Cell Volume 97.9 fl (78-100); Mean Corpuscular Hemoglobin 31.5 pg (26-32); Mean Corpuscular Hgb Concent. 32.2 g/dl (32-36); Mean Platelet Volume 10.8 fl (6-9.5); Monocyte (Absolute #) 0.73 (0.0-1.3); Monocytes % 10.5 % (0.0-12.0); Platelet Count 225 K/mm3 (150-450); Red Blood Count 4.38 M/mm3 (4.1-5.4); Red Cell Distribution Width 13.6 % (11.5-14.0)
[2018-07-04 23:11] LABS: ALBUMIN 4.1 g/dL (3.5-5.0); ALKALINE PHOSPHATASE 87 U/L (38-126); AMYLASE 64 U/L (30-110); ANION GAP 12.7 MEQ/L (5-15); BLOOD UREA NITROGEN 22 mg/dL (7-17); CHLORIDE 108 mmol/L (98-107); Calcium 9.1 mg/dL (8.4-10.2); Carbon Dioxide 26 mmol/L (22-30); Creatinine 1 0.77 mg/dL (0.52-1.04); Glucose 151 mg/dL (74-106); LIPASE 45 U/L (23-300); Potassium 3.6 mmol/L (3.5-5.1); SGOT/AST 28 U/L (14-36); SGPT/ALT 23 U/L (0-35); SODIUM 143 mmol/L (137-145); Total Protein 7.1 g/dL (6.3-8.2)
[2018-07-04 23:30] LABS: Slide Review 1 NO
[2018-07-04 23:42] LABS: Appearance CLEAR (CLEAR); Bilirubin NEGATIVE (NEGATIVE); Blood SMALL Ery/ul (0-5); Epithelial Cells RARE /HPF (FEW); Glucose NEGATIVE (NEGATIVE); Ketones NEGATIVE (NEGATIVE); Leukocyte Esterase SMALL (NEGATIVE); Mucus SLIGHT /HPF (NEGATIVE); Nitrite NEGATIVE (NEGATIVE); Protein,Urine Dip NEGATIVE (Negative); RBC 0-2 /HPF (0-2); Specific Gravity 1.018 (1.005-1.025); Urobilinogen NEGATIVE mg/dL (0-1)
[2018-07-04 23:43] LABS: WBC 0-2 /HPF (0-5)
[2018-07-05] MEDS ORDERED: Cipro 500 MG PO ONE (00:02)
[2018-07-05] MEDS ORDERED: Flagyl 500 MG PO ONE (00:02)
[2018-07-05] MEDS ORDERED: Flagyl 500 MG ONE (00:12)
[2018-07-05] MEDS ORDERED: Cipro 500 MG ONE (00:12)
[2018-07-05 00:14] VITALS: BP 186/83; PULSE 68; O2SAT 96
--- NOTE | 2018-07-05 08:02 | XRAY ---
Indication: Left lower quadrant pain. Nausea and diarrhea. Diverticulosis. Multiple contiguous axial images obtained through the abdomen and pelvis without contrast as ordered. Comparison: January 16, 2018 Lung bases demonstrates stable minimal bibasilar atelectasis/scarring and right hemidiaphragm elevation. No infiltrate or effusion. Heart is not enlarged. Stable small hiatal hernia. Noncontrasted stomach and bowel loops appear nonobstructed. Stable small descending duodenal diverticulum. Normal appendix. Mild diffuse scattered colonic fecal debris throughout and minimal sigmoid diverticulosis. Mid to proximal sigmoid colon demonstrates mild wall thickening with minimal stranding, diverticulitis/colitis. No free fluid/air. Incidental 1.3 cm gallstone, bilateral parapelvic renal cysts, and hysterectomy. Remaining liver, pancreas, spleen, adrenal glands, kidneys, ureters, and bladder appear unremarkable for noncontrast exam. Mild aortoiliac calcifications without AAA. Osseous structures intact with mild degenerative changes throughout the spine. Impression: 1. Sigmoid colon wall thickening/stranding, diverticulitis/colitis. No complications. 2. Fecal stasis without obstruction and sigmoid diverticulosis. 3. Cholelithiasis without CT features for cholecystitis. 4. Small hiatal hernia, duodenal diverticulum, renal cysts, and right hemidiaphragm elevation. Comment: Preliminary interpretation was made by [facility]. No discrepancy. CTDI 23.33
== END 2018-07-05 00:27 | disposition home or self-care (01) ==
LOC: ED 20:43
DX: Z79.899 Other long term (current) drug therapy (principal)
CPT/HCPCS: 36000; 36415; 74176; 80053; 81001; 82150; 83605; 83690; 85025; 87086; 96360; 96374; 99284; J2405; A9270-GY

== ENCOUNTER 2020-10-26 11:16 | Emergency (ER) | payer MEDICARE, OTHER ==
--- NOTE | 2020-10-26 11:46 | ERPHSYRPT ---
- History of Present Illness Time Seen by Provider: 10/26/20 11:43 Source: patient Exam Limitations: no limitations Patient Subjective Stated Complaint: cough Triage Nursing Assessment: cough Timing/Duration: yesterday Cough Quality/Degree: mild Possible Cause: unknown cause (cOVID) Modifying Factors: Improves With: activity Associated Symptoms: fever, cough, muscle aches Allergies/Adverse Reactions: nitrofurantoin macrocrystalline [From Macrodantin] Allergy (Mild, Verified 10/29/20 18:45) morphine Adverse Reaction (Mild, Verified 10/29/20 18:45) Home Medications: Aspirin [Aspirin EC] 81 mg PO DAILY 05/30/14 [History] Atorvastatin Calcium [Lipitor] 10 mg PO DAILY 05/30/14 [History] Clopidogrel Bisulfate 75 mg [PLAVIX 75 MG Tablet] 75 mg PO DAILY 05/30/14 [History] Potassium Chloride 10 Meq Tab* [Klor Con 10 MEQ] 10 meq PO DAILY 05/30/14 [History] Carvedilol 6.25 mg [Coreg 6.25 MG] 6.25 mg PO BID 07/04/18 [History] Hx Tetanus, Diphtheria Vaccination/Date Given: Yes Hx Influenza Vaccination/Date Given: No Hx Pneumococcal Vaccination/Date Given: No - Review of Systems Constitutional: No Fever, No Chills Eyes: No Symptoms Ears, Nose, & Throat: No Symptoms Respiratory: Cough, No Dyspnea Cardiac: No Chest Pain, No Edema, No Syncope Abdominal/Gastrointestinal: No Abdominal Pain, No Nausea, No Vomiting, No Diarrhea Genitourinary Symptoms: No Dysuria Musculoskeletal: No Back Pain, No Neck Pain Skin: No Rash Neurological: No Dizziness, No Focal Weakness, No Sensory Changes Psychological: No Symptoms Endocrine: No Symptoms All Other Systems: Reviewed and Negative - Past Medical History Pertinent Past Medical History: Yes Neurological History: No Pertinent History ENT History: No Pertinent History Cardiac History: Coronary Artery Disease, Hypertension, Myocardial Infarction ([place]) Respiratory History: No Pertinent History Endocrine Medical History: No Pertinent History Musculoskeletal History: No Pertinent History GI Medical History: Diverticulitis History: No Pertinent History Psycho-Social History: No Pertinent History Female Reproductive Disorders: No Pertinent History Other Medical History: recently SOB schedlued for pulmonary function test tomorrow - Past Surgical History Past Surgical History: Yes Neuro Surgical History: No Pertinent History Cardiac: Cardiac Catheterization, Cardiac Stent Respiratory: No Pertinent History Gastrointestinal: No Pertinent History Genitourinary: No Pertinent History Musculoskeletal: Orthopedic Surgery Female Surgical History: Hysterectomy Other Surgical History: ORTHO CHILD--LT ARM - Social History Smoking Status: Never smoker Exposure to second hand smoke: No Drug Use: none Patient Lives Alone: No - Nursing Vital Signs Nursing Vital Signs: Initial Vital Signs Temperature 97.2 F 10/26/20 11:30 Pulse Rate 62 10/26/20 11:30 Respiratory Rate 18 10/26/20 11:30 Blood Pressure 146/69 10/26/20 11:30 O2 Sat by Pulse Oximetry 93 L 10/26/20 11:30 Pain Scale Pain Intensity 6 - Physical Exam General Appearance: no apparent distress Eye Exam: PERRL/EOMI Ears, Nose, Throat Exam: normal ENT inspection Neck Exam: normal inspection Respiratory Exam: rhonchi Cardiovascular Exam: regular rate/rhythm Gastrointestinal/Abdomen Exam: soft Back Exam: normal inspection Extremity Exam: normal inspection Neurologic Exam: alert, oriented x 3, cooperative Skin Exam: normal color SpO2 Interpretation: normal SpO2: 96 O2 Delivery: Room Air - Course Nursing assessment & vital signs reviewed: Yes - Radiology Exams Chest X-ray Interpretation: Interpreted by me, Pneumonia (mild, RLL) Ordered Tests: Medication Summary Discontinued Medications Generic Name Dose Route Start Last Admin Trade Name Freq PRN Reason Stop Dose Admin Lactated Ringer's 1,000 mls @ 999 mls/hr 10/26/20 12:28 10/26/20 13:52 Lactated Ringers IV 10/26/20 13:28 Infused .Q1H1M ONE Infusion Lactated Ringer's Confirm 10/26/20 12:45 Lactated Ringers Administered 10/26/20 12:46 Dose 1,000 mls @ ud IV .STK-MED ONE Lab/Rad Data: Laboratory Result Diagrams 10/26/20 12:45 10/26/20 12:45 Laboratory Results 10/26/20 10/26/20 10/26/20 Range/Units 14:47 12:45 12:45 WBC 5.2 (4.0-10.5) K/mm3 RBC 4.46 (4.1-5.4) M/mm3 Hgb 13.8 (12.0-16.0) gm/dl Hct 43.0 (35-47) % MCV 96.4 (78-100) fl MCH 30.9 (26-32) pg MCHC 32.1 (32-36) g/dl RDW 13.3 (11.5-14.0) % Plt Count 209 (150-450) K/mm3 MPV 10.1 (7.5-11.0) fl Sodium 141 (137-145) mmol/L Potassium 3.7 (3.5-5.1) mmol/L Chloride 103 (98-107) mmol/L Carbon Dioxide 26 (22-30) mmol/L Anion Gap 15.1 H (5-15) MEQ/L BUN 11 (7-17) mg/dL Creatinine 0.71 (0.52-1.04) mg/dL Estimated GFR > 60.0 ML/MIN Glucose 108 H (74-106) mg/dL Calcium 8.8 (8.4-10.2) mg/dL Total Bilirubin 0.60 (0.2-1.3) mg/dL AST 40 H (14-36) U/L ALT 25 (0-35) U/L Alkaline Phosphatase 70 (38-126) U/L Serum Total Protein 6.9 (6.3-8.2) g/dL Albumin 3.9 (3.5-5.0) g/dL Calcitonin <2.0 (0.0-5.0) pg/mL - Progress Progress: improved Air Movement: good Blood Culture(s) Obtained: Yes Antibiotics given: Yes Counseled pt/family regarding: lab results, diagnosis, need for follow-up, rad results - Departure Departure Disposition: Home Clinical Impression: Pneumonia due to COVID-19 virus Condition: Stable Critical Care Time: No Referrals: BECKY ESTES MD [Primary Care Provider] - Instructions: Pneumonia, Adult (DC), Coronavirus Disease 2019 (COVID-19) Additional Instructions: Continue to self-isolate and contact Dr. Estes. Prescriptions: Azithromycin [Zithromax] 250 mg PO DAILY 5 Days #6 tablet
[2020-10-26] MEDS ORDERED: Lactated Ringers 1,000 ML IV ONE ×2 (12:28→12:45)
--- NOTE | 2020-10-26 12:43 | XRAY ---
Indication: Cough. Positive Covid 19. Comparison: January 19, 2017. Portable chest demonstrates new moderate right lower lobe infiltrate/atelectasis and new scattered left lung fibrosis/scarring. Heart not enlarged. Bony thorax intact with osteopenia and degenerative changes.
[2020-10-26 13:17] LABS: ALBUMIN 3.9 g/dL (3.5-5.0); ALKALINE PHOSPHATASE 70 U/L (38-126); ANION GAP 15.1 MEQ/L (5-15); BLOOD UREA NITROGEN 11 mg/dL (7-17); CHLORIDE 103 mmol/L (98-107); Calcium 8.8 mg/dL (8.4-10.2); Carbon Dioxide 26 mmol/L (22-30); Creatinine 1 0.71 mg/dL (0.52-1.04); EST GLOMERULAR FILTRATION RATE > 60.0 ML/MIN; Glucose 108 mg/dL (74-106); Potassium 3.7 mmol/L (3.5-5.1); SGOT/AST 40 U/L (14-36); SGPT/ALT 25 U/L (0-35); SODIUM 141 mmol/L (137-145); Total Protein 6.9 g/dL (6.3-8.2)
[2020-10-26 13:24] LABS: Hemoglobin 13.8 gm/dl (12.0-16.0); Mean Cell Volume 96.4 fl (78-100); Mean Corpuscular Hemoglobin 30.9 pg (26-32); Mean Corpuscular Hgb Concent. 32.1 g/dl (32-36); Mean Platelet Volume 10.1 fl (7.5-11.0); Platelet Count 209 K/mm3 (150-450); Red Blood Count 4.46 M/mm3 (4.1-5.4); Red Cell Distribution Width 13.3 % (11.5-14.0); White Blood Count 5.2 K/mm3 (4.0-10.5)
[2020-10-26 15:02] VITALS: BP 171/78; PULSE 58; O2SAT 96
== END 2020-10-26 15:18 | disposition home or self-care (01) ==
LOC: ED 11:16
DX: U07.1 COVID-19 (principal); J12.82 Pneumonia due to coronavirus disease 2019; Z79.899 Other long term (current) drug therapy; Z79.01 Long term (current) use of anticoagulants
CPT/HCPCS: 36000; 36415; 71045; 80053; 82308; 85027; 87040; 96360; 99284

== ENCOUNTER 2020-10-29 18:18 | Emergency (ER) | payer MEDICARE, OTHER ==
[2020-10-29] MEDS ORDERED: Floxin Otic 5 ML OT ONE (19:25)
[2020-10-29] MEDS ORDERED: Augmentin 875-125 Tablet PO ONE (19:25)
[2020-10-29] MEDS ORDERED: NORCO 5/325 MG PO ONE (19:26)
[2020-10-29 19:28] VITALS: BP 184/106; PULSE 60
[2020-10-29 19:32] VITALS: O2SAT 96
--- NOTE | 2020-10-29 19:32 | ERPHSYRPT ---
- History of Present Illness Time Seen by Provider: 10/29/20 19:11 Source: patient Exam Limitations: no limitations Patient Subjective Stated Complaint: pt is covid positive. pt reports bilat ear pain and congestion, states her left ear is bleeding. states she used an ear wax removal kit earlier and noticed the blood. reports a severe headache. Triage Nursing Assessment: pt is aox3, pupils perrl, afebrile, resps easy and non labored, cap refill < 3 seconds, radial pulses strong and equal, pt skin pink warm dry. no drainage noted from ear canals. Physician History: 70 years old female with history of coronary artery disease status post stenting, hypertension, hyperlipidemia, positive COVID-19 almost a week ago presented in the ER with gradually increasing sinus congestion for 3 to 4 days with associated bilateral earache and heaviness/fullness sensation. She was having irritation of the left ear and was told that she has a lot of wax and tried to remove it with [id number] wax removal kit and noticed some bleeding. Complaining of frontal headache and sinus pressure. No fever or chills reported. No difficulty breathing. Minimal nonproductive cough at times. No chest pain or shortness of breath reported Timing/Duration: gradual onset, yesterday (3) Severity: moderate ENT Location: ear (R), ear (L) Prearrival Treatment: over the counter meds Modifying Factors: Improves With: nothing Associated Symptoms: ear pain (R), ear pain (L), ear drainage, nasal congestion/drainage, sinus infection, sore throat, No fever, No chills, No change in hearing, No headache, No voice change Allergies/Adverse Reactions: nitrofurantoin macrocrystalline [From Macrodantin] Allergy (Mild, Verified 10/29/20 18:45) morphine Adverse Reaction (Mild, Verified 10/29/20 18:45) Home Medications: Aspirin [Aspirin EC] 81 mg PO DAILY 05/30/14 [History] Atorvastatin Calcium [Lipitor] 10 mg PO DAILY 05/30/14 [History] Clopidogrel Bisulfate 75 mg [PLAVIX 75 MG Tablet] 75 mg PO DAILY 05/30/14 [History] Potassium Chloride 10 Meq Tab* [Klor Con 10 MEQ] 10 meq PO DAILY 05/30/14 [History] Carvedilol 6.25 mg [Coreg 6.25 MG] 6.25 mg PO BID 07/04/18 [History] Hx Tetanus, Diphtheria Vaccination/Date Given: Yes Hx Influenza Vaccination/Date Given: Yes Hx Pneumococcal Vaccination/Date Given: Yes Immunizations Up to Date: Yes Travel Risk - International Travel Have you traveled outside of the country in past 3 weeks: No - Coronavirus Screening Are you exhibiting any of the following symptoms?: Yes Symptoms: Fever, Headaches/Body Aches/Fatigue - Vaccine Status Have you recieved a Covid-19 vaccination: No - Review of Systems Constitutional: No Symptoms Eyes: No Symptoms Ears, Nose, & Throat: Ear Pain, Ear Discharge, Nose Congestion, Sinus Drainage Respiratory: Cough Cardiac: No Symptoms Abdominal/Gastrointestinal: No Symptoms Genitourinary Symptoms: No Symptoms Musculoskeletal: Myalgias Neurological: No Symptoms Psychological: No Symptoms Endocrine: No Symptoms Hematologic/Lymphatic: No Symptoms Immunological/Allergic: No Symptoms - Past Medical History Pertinent Past Medical History: Yes Neurological History: No Pertinent History ENT History: No Pertinent History Cardiac History: Coronary Artery Disease, Hypertension, Myocardial Infarction ([place]) Respiratory History: No Pertinent History Endocrine Medical History: No Pertinent History Musculoskeletal History: No Pertinent History GI Medical History: Diverticulitis History: No Pertinent History Psycho-Social History: No Pertinent History Female Reproductive Disorders: No Pertinent History Other Medical History: recently SOB schedlued for pulmonary function test tomorrow - Past Surgical History Past Surgical History: Yes Neuro Surgical History: No Pertinent History Cardiac: Cardiac Catheterization, Cardiac Stent Respiratory: No Pertinent History Gastrointestinal: No Pertinent History Genitourinary: No Pertinent History Musculoskeletal: Orthopedic Surgery Female Surgical History: Hysterectomy Other Surgical History: ORTHO CHILD--LT ARM - Social History Smoking Status: Never smoker Exposure to second hand smoke: No Drug Use: none Patient Lives Alone: No - Female History Hx Now: No - Nursing Vital Signs Nursing Vital Signs: Initial Vital Signs Temperature 98 F 10/29/20 18:40 Pulse Rate 69 10/29/20 18:40 Respiratory Rate 18 10/29/20 18:40 Blood Pressure 181/89 10/29/20 18:40 O2 Sat by Pulse Oximetry 96 10/29/20 18:40 Pain Scale Pain Intensity 7 - Physical Exam General Appearance: no apparent distress, alert Eye Exam: bilateral eye: normal inspection, PERRL, EOMI Ear Exam: right ear: canal normal, TM normal, left ear: erythema, swelling, tenderness, other (No visible TM.), bilateral ear: auricle normal Nasal Exam: normal inspection, active bleeding Throat Exam: moist mucus membranes, pharynx swelling Neck Exam: normal inspection, non-tender, supple, full range of motion, trachea midline Cardiovascular/Respiratory Exam: normal breath sounds, regular rate/rhythm Neurologic Exam: alert, oriented x 3, cooperative, top taper machine II-XII nml as tested, normal mood/affect Skin Exam: normal color SpO2 Interpretation: normal SpO2: 96 O2 Delivery: Room Air Ordered Tests: Medication Summary Discontinued Medications Generic Name Dose Route Start Last Admin Trade Name Freq PRN Reason Stop Dose Admin Hydrocodone Bitart/Acetaminophen 2 tab 10/29/20 19:26 10/29/20 19:47 Alton 5/325 Mg PO 10/29/20 19:27 2 tab SENT HOME W/ PATIENT ONE Administration Hydrocodone Bitart/Acetaminophen Confirm 10/29/20 19:40 Alton 5/325 Mg Administered 10/29/20 19:41 Dose 2 tab .ROUTE .[facility]-MED ONE Amoxicillin/Clavulanate Potassium 875 mg 10/29/20 19:25 10/29/20 19:47 Augmentin 875-125 Tablet PO 10/29/20 19:26 875 mg STAT ONE Administration Amoxicillin/Clavulanate Potassium Confirm 10/29/20 19:40 Augmentin 875-125 Tablet Administered 10/29/20 19:41 Dose 875 mg .ROUTE .[facility]-MED ONE Ofloxacin 5 ml 10/29/20 19:25 10/29/20 19:51 Floxin Otic 5 Ml OT 10/29/20 19:26 Not Given STAT ONE - Progress Progress: unchanged Progress Note: 10/29/20 19:30 Family patient has sinusitis with resultant eustachian tube dysfunction causing pressure in the ears and also otitis externa. Started on Augmentin and Flonase along with ofloxacin eardrops. Outpatient follow-up recommended. Recommended not to use any stop for wax removal Counseled pt/family regarding: diagnosis, need for follow-up - Departure Departure Disposition: Home Clinical Impression: Otitis externa Qualifiers: Otitis externa type: unspecified type Chronicity: acute Laterality: left Qualified Code(s): H60.502 - Unspecified acute noninfective otitis externa, left ear Acute sinusitis Qualifiers: Sinusitis location: maxillary Recurrence: not specified as recurrent Qualified Code(s): J01.00 - Acute maxillary sinusitis, unspecified Condition: Stable Critical Care Time: No Referrals: BECKY ESTES MD [Primary Care Provider] - Follow Up with PCP/3 days Instructions: Sinusitis, Adult (DC), Outer Ear Infection (DC) Additional Instructions: Use Tylenol as needed for pain. Do not use any [id number] stuff for wax removal. Follow-up with primary care for reevaluation. Return to ER for worsening. Prescriptions: Amoxicillin/Potassium Clav [Augmentin 875-125 Tablet] 875 mg PO BID 7 Days #14 tablet Fluticasone Propionate [Flonase NASAL] 16 gm NS DAILY #1 Ofloxacin Otic 5 ml [Floxin Otic 5 ML] 5 ml OT DAILY 7 Days #5 ml
[2020-10-29] MEDS ORDERED: NORCO 5/325 MG ONE (19:40)
[2020-10-29] MEDS ORDERED: Augmentin 875-125 Tablet ONE (19:40)
== END 2020-10-29 20:02 | disposition home or self-care (01) ==
LOC: ED 18:18
DX: H60.502 Unspecified acute noninfective otitis externa, left ear (principal); J01.00 Acute maxillary sinusitis, unspecified; I10 Essential (primary) hypertension; I25.10 Atherosclerotic heart disease of native coronary artery without angina pectoris; I25.2 Old myocardial infarction; Z79.899 Other long term (current) drug therapy
CPT/HCPCS: 99283; A9270-GY

== ENCOUNTER 2022-02-09 13:26 | Emergency (ER) | payer MEDICARE ==
[2022-02-09] MEDS ORDERED: Sodium Chloride 0.9% 1000 ML 1,000 ML IV STA (13:37)
[2022-02-09] MEDS ORDERED: Sodium Chloride 0.9% 1000 ML 1,000 ML ONE (13:52)
[2022-02-09 13:55] LABS: Absolute Neutrophil Ct (ANC) 8.12 x10^3/uL (1.4-6.9); Basophil (Absolute #) 0.03 x10^3/uL (0-0.4); Hematocrit 43.5 % (35-47); Hemoglobin 13.9 g/dL (12.0-16.0); Lymphocytes % 8.9 % (24.0-44.0); Mean Corpuscular Hemoglobin 31.3 pg (26-32); Mean Platelet Volume 9.8 fL (7.5-11.0); Monocyte (Absolute #) 0.93 x10^3/uL (0.0-1.3); Monocytes % 9.2 % (0.0-12.0); Neutrophil % 80.3 % (36.0-66.0); Platelet Count 219 x10^3/uL (150-450); Red Blood Count 4.44 x10^6/uL (4.1-5.4); Red Cell Distribution Width 12.6 % (11.5-14.0); White Blood Count 10.1 x10^3/uL (4.0-10.5)
--- NOTE | 2022-02-09 13:59 | ERPHSYRPT ---
- History of Present Illness Time Seen by Provider: 02/09/22 13:56 Historian: patient Patient Subjective Stated Complaint: pt reports pain in her lower back and left flank for approx one week Triage Nursing Assessment: pt is aox3, afebrile, pupils perrl, resps easy and non labored, radial pulses strong and equal, pt abd soft tender to LLQ, bowel sounds present normoactive, pt skin pink warm dry. Physician History: Patient is 71-year-old female came to the emergency room with 1 week history of left flank pain which has been there for 1 week but now since yesterday it has been radiating to the front of the abdomen. Patient was seen at [facility] where she was treated as UTI but then when the culture came negative and she was advised to stop the antibiotic. She was doing okay but since yesterday evening she started having pain in the front of the abdomen on the left side associated with somewhat nausea. She denies any diarrhea or blood in the stool or blood in the urine. She also denies any fever or chills. Timing/Duration: day(s) (7-8 days) Quality: aching Abdominal Pain Onset Location: flank (left) Pain Radiation: LLQ Severity of Pain-Max: mild Severity of Pain-Current: mild Modifying Factors: Improves With: nothing Associated Symptoms: denies symptoms Allergies/Adverse Reactions: nitrofurantoin macrocrystalline [From Macrodantin] Allergy (Mild, Verified 02/09/22 13:42) morphine Adverse Reaction (Mild, Verified 02/09/22 13:42) Home Medications: Aspirin [Aspirin EC] 81 mg PO DAILY 05/30/14 [History] Atorvastatin Calcium [Lipitor] 10 mg PO DAILY 05/30/14 [History] Potassium Chloride Tab* [Klor Con 10 MEQ] 10 meq PO DAILY 05/30/14 [History] Carvedilol [Coreg 6.25 MG] 6.25 mg PO BID 07/04/18 [History] Prasugrel HCL 10 MG [Prasugrel] 10 mg PO DAILY 02/09/22 [History] Hx Tetanus, Diphtheria Vaccination/Date Given: Yes Hx Influenza Vaccination/Date Given: Yes Hx Pneumococcal Vaccination/Date Given: Yes Immunizations Up to Date: Yes Travel Risk - International Travel Have you traveled outside of the country in past 3 weeks: No - Coronavirus Screening Are you exhibiting any of the following symptoms?: No Close contact with a COVID-19 positive Pt in past 14-21 Days: No - Vaccine Status Have you recieved a Covid-19 vaccination: No - Review of Systems Constitutional: No Fever, No Chills Eyes: No Symptoms Ears, Nose, & Throat: No Symptoms Respiratory: No Cough, No Dyspnea Cardiac: No Chest Pain, No Edema, No Syncope Abdominal/Gastrointestinal: Abdominal Pain, No Nausea, No Vomiting, No Diarrhea Genitourinary Symptoms: No Dysuria Musculoskeletal: No Back Pain, No Neck Pain Skin: No Rash Neurological: No Dizziness, No Focal Weakness, No Sensory Changes Psychological: No Symptoms Endocrine: No Symptoms All Other Systems: Reviewed and Negative - Past Medical History Pertinent Past Medical History: Yes Neurological History: No Pertinent History ENT History: No Pertinent History Cardiac History: Coronary Artery Disease, Hypertension, Myocardial Infarction ([place]) Respiratory History: No Pertinent History Endocrine Medical History: No Pertinent History Musculoskeletal History: No Pertinent History GI Medical History: Diverticulitis History: No Pertinent History Psycho-Social History: No Pertinent History Female Reproductive Disorders: No Pertinent History Other Medical History: recently SOB schedlued for pulmonary function test tomorrow - Past Surgical History Past Surgical History: Yes Neuro Surgical History: No Pertinent History Cardiac: Cardiac Catheterization, Cardiac Stent Respiratory: No Pertinent History Gastrointestinal: No Pertinent History Genitourinary: No Pertinent History Musculoskeletal: Orthopedic Surgery Female Surgical History: Hysterectomy Other Surgical History: ORTHO CHILD--LT ARM - Social History Smoking Status: Never smoker Exposure to second hand smoke: No Drug Use: none Patient Lives Alone: No - Nursing Vital Signs Nursing Vital Signs: Initial Vital Signs Temperature 97.1 F 02/09/22 13:32 Pulse Rate 60 02/09/22 13:32 Respiratory Rate 20 02/09/22 13:32 Blood Pressure 158/77 02/09/22 13:32 O2 Sat by Pulse Oximetry 98 02/09/22 13:32 Pain Scale Pain Intensity 6 - Physical Exam General Appearance: no apparent distress, alert Eye Exam: PERRL/EOMI, eyes nml inspection Ears, Nose, Throat Exam: normal ENT inspection, pharynx normal, moist mucous membranes Neck Exam: normal inspection, non-tender, supple, full range of motion Respiratory Exam: normal breath sounds, lungs clear, No respiratory distress Cardiovascular Exam: regular rate/rhythm, normal heart sounds Gastrointestinal/Abdomen Exam: soft, No tenderness, No mass Back Exam: normal inspection, normal range of motion, No CVA tenderness, No vertebral tenderness Extremity Exam: normal inspection, normal range of motion, pelvis stable Neurologic Exam: alert, oriented x 3, cooperative, normal mood/affect, nml cerebellar function, sensation nml, No motor deficits Skin Exam: normal color, warm, dry SpO2: 98 - Course Nursing assessment & vital signs reviewed: Yes - CT Exams Abdomen/Pelvis CT Interpretation: Tele-radiologist Report (acute non complicating diverticulitis, Gall stones) Ordered Tests: Active Orders 24 hr Category Date Time Status ABDOMEN AND PELVIS W/0 CONTRAS [CT] Stat Exams 02/09/22 14:16 Taken AMYLASE Stat Lab 02/09/22 13:45 Completed CBC W DIFF Stat Lab 02/09/22 13:45 Completed CMP Stat Lab 02/09/22 13:45 Completed LIPASE Stat Lab 02/09/22 13:45 Completed UA W/RFX CULTURE Stat Lab 02/09/22 13:30 Completed Medication Summary Discontinued Medications Generic Name Dose Route Start Last Admin Trade Name Freq PRN Reason Stop Dose Admin Sodium Chloride 1,000 mls @ 999 mls/hr 02/09/22 13:37 02/09/22 14:57 Sodium Chloride 0.9% 1000 Ml IV 02/09/22 14:37 Infused .Q1H1M STA Infusion Sodium Chloride Confirm 02/09/22 13:52 Sodium Chloride 0.9% 1000 Ml Administered 02/09/22 13:53 Dose 1,000 mls @ ud .ROUTE .[facility] Lab/Rad Data: Laboratory Result Diagrams 02/09/22 13:45 02/09/22 13:45 Laboratory Results 02/09/22 02/09/22 02/09/22 Range/Units 13:45 13:45 13:30 WBC 10.1 (4.0-10.5) x10^3/uL RBC 4.44 (4.1-5.4) x10^6/uL Hgb 13.9 (12.0-16.0) g/dL Hct 43.5 (35-47) % MCV 98.0 (78-100) fL MCH 31.3 (26-32) pg MCHC 32.0 (32-36) g/dL RDW 12.6 (11.5-14.0) % Plt Count 219 (150-450) x10^3/uL MPV 9.8 (7.5-11.0) fL Gran % 80.3 H (36.0-66.0) % Immature Gran % (Auto) 0.3 (0.00-0.4) % Nucleat RBC Rel Count 0.0 (0.00-0.1) % Eos # (Auto) 0.10 (0-0.5) x10^3/uL Immature Gran # (Auto) 0.03 (0.00-0.03) x10^3u/L Absolute Lymphs (auto) 0.90 L (1.0-4.6) x10^3/uL Absolute Monos (auto) 0.93 (0.0-1.3) x10^3/uL Absolute Nucleated RBC 0.00 (0.00-0.01) x10^3u/L Lymphocytes % 8.9 L (24.0-44.0) % Monocytes % 9.2 (0.0-12.0) % Eosinophils % 1.0 (0.00-5.0) % Basophils % 0.3 (0.0-0.4) % Absolute Granulocytes 8.12 H (1.4-6.9) x10^3/uL Basophils # 0.03 (0-0.4) x10^3/uL Sodium 137 (137-145) mmol/L Potassium 4.7 (3.5-5.1) mmol/L Chloride 105 (98-107) mmol/L Carbon Dioxide 25 (22-30) mmol/L Anion Gap 11.5 (5-15) MEQ/L BUN 16 (7-17) mg/dL Creatinine 0.71 (0.52-1.04) mg/dL Estimated GFR > 60.0 ML/MIN Glucose 103 (74-106) mg/dL Calcium 8.9 (8.4-10.2) mg/dL Total Bilirubin 0.70 (0.2-1.3) mg/dL AST 36 (14-36) U/L ALT 21 (0-35) U/L Alkaline Phosphatase 67 (38-126) U/L Serum Total Protein 7.4 (6.3-8.2) g/dL Albumin 4.2 (3.5-5.0) g/dL Amylase 58 (30-110) U/L Lipase 41 (23-300) U/L Urinalys Dipstick Clnc MAIN LAB Urine Color YELLOW (YELLOW) Urine Appearance CLEAR (CLEAR) Urine pH 6.5 (5-6) Ur Specific Freeborn 1.015 (1.005-1.025) POC Urine Protein Conf NEGATIVE (Negative) Urine Ketones NEGATIVE (NEGATIVE) Urine Nitrite NEGATIVE (NEGATIVE) Urine Bilirubin NEGATIVE (NEGATIVE) Urine Urobilinogen 0.2 (0-1) mg/dL Urine Leukocytes NEGATIVE (NEGATIVE) Urine WBC (Auto) NONE (0-5) /HPF Urine RBC (Auto) 0-2 (0-2) /HPF U Epithel Cells (Auto) RARE (FEW) /HPF Urine Bacteria (Auto) NONE (NEGATIVE) /HPF Urine RBC NEGATIVE (0-5) Colby/ul Ur Culture Indicated? NO Urine Glucose NEGATIVE (NEGATIVE) mg/dL - Progress Progress: improved, pain not gone completely Counseled pt/family regarding: lab results, diagnosis, need for follow-up, rad results - Departure Departure Disposition: Home Clinical Impression: Diverticulitis large intestine Qualifiers: Diverticulitis bleeding: without bleeding Diverticulitis complication: without perforation or abscess Qualified Code(s): K57.32 - Diverticulitis of large intestine without perforation or abscess without bleeding Cholelithiasis Qualifiers: Cholelithiasis location: gallbladder Cholecystitis presence: without cholec ystitis Biliary obstruction: without biliary obstruction Qualified Code(s): K80.20 - Calculus of gallbladder without cholecystitis without obstruction Condition: Stable Critical Care Time: Yes Critical Care Time(excluding separately billable procedures): Critical 30-74 mins Referrals: AGUSTIN RAY MD [Primary Care Provider] - Follow up/PCP as directed Instructions: Gallstones (DC), Diverticulitis (DC) Additional Instructions: Discharge/Care Plan KARENALYSON BRISENO was seen on 02/09/22 in the Emergency Room. The patient was counseled regarding Diagnosis,Lab results, Imaging studies, need for follow up and when to return to the Emergency Room. Prescriptions given: Discharge Note I have spoken with the patient and/or caregivers. I have explained the patient's condition, diagnosis and treatment plan based on the information available to me at this time. I have answered the patient's and/or caregiver's questions and addressed any concerns. The patient and/or caregivers have as good understanding of the patient's diagnosis, condition and treatment plan as can be expected at this point. The vital signs have been stable. The patient's condition is stable and appropriate for discharge from the emergency department. The patient will pursue further outpatient evaluation with the primary care physician or other designated or consulting physician as outlined in the discharge instructions. The patient and/or caregivers are agreeable to this plan of care and follow-up instructions have been explained in detail. The patient and/or caregivers have received these instruction. The patient/and or caregivers are aware that any significant change in condition or worsening of symptoms should prompt an immediate return to this or the closest emergency department or call 911. ALYSON JONES was seen on 02/09/22 n the Emergency Room. At that time you were treated for an emergent condition, during your visit Laboratory, Radiology and/or other procedures may have been ordered. It is very important that you follow-up with your Primary Care Physician AGUSTIN RAY within the next 24- 48 hours to review your Emergency Room visit and the final results of testing that was ordered. Some test results such as Urine Cultures, Blood Cultures, and other cultures if ordered will not be finalized for 24-48 hours. If you do not have a Primary Care Provider please call the medical records d [facility] at [phone] ext [phone] to obtain a copy of your results or you may sign into our patient portal to obtain these results by visiting us @ [email or web address] and completing the following steps: 1. Click on the Patient Portal link 2. Click the Patient Self Enrollment Link to complete the enrollment form and entering your 3. Once the enrollment form is completed you will receive an email with a temporary ID and password at the email address you provided. 4. Next choose a user name and password. Your user name must be at least 4 characters long and your password must be at least 4 characters long. 5. Choose a security question from the list and provide your answer to the question. If you already have signed into the Health Portal you may access your Health Care Information 30/09 by the following steps: 1. Login to our website @ [email or web address] 2. Enter your original user name and password. FAQS The [facility] Health Portal is an online tool that contains your Lab Results, Radiology Reports, Visit History, Discharge Instructions and Health Summary Lab and Radiology Results will not be available for 72 hours on the portal. The Portal is a secure site, passwords are encryted and URLs are re-written so they cannot be copied and pasted. You and authorized family members are the only ones who can access your Portal. Also there is a timeout feature that protects your information if you leave the Portal page open. If you have technical difficulty please use the Contact Us link on the page this will allow you to submit any questions you have regarding the Portal or you may contact the Medical Record Department at [phone] ext [phone]. Prescriptions: Metronidazole 500 mg [Flagyl 500 MG] 500 mg PO TID #21 tablet
[2022-02-09 14:03] LABS: Epithelial Cells RARE /HPF (FEW); RBC 0-2 /HPF (0-2)
[2022-02-09 14:04] LABS: Appearance CLEAR (CLEAR); Bilirubin NEGATIVE (NEGATIVE); Dipstick done @ ? MAIN LAB; Glucose NEGATIVE (NEGATIVE); Ketones NEGATIVE (NEGATIVE); Nitrite NEGATIVE (NEGATIVE); Ph 6.5 (5-6); Protein,Urine Dip NEGATIVE (Negative); RBC NEGATIVE Ery/ul (0-5); Specific Gravity 1.015 (1.005-1.025); Urine Cultured Indicated? NO; Urobilinogen 0.2 mg/dL (0-1)
[2022-02-09 14:08] LABS: ALBUMIN 4.2 g/dL (3.5-5.0); ALKALINE PHOSPHATASE 67 U/L (38-126); AMYLASE 58 U/L (30-110); ANION GAP 11.5 MEQ/L (5-15); BLOOD UREA NITROGEN 16 mg/dL (7-17); CHLORIDE 105 mmol/L (98-107); Calcium 8.9 mg/dL (8.4-10.2); Carbon Dioxide 25 mmol/L (22-30); Creatinine 1 0.71 mg/dL (0.52-1.04); EST GLOMERULAR FILTRATION RATE > 60.0 ML/MIN; Glucose 103 mg/dL (74-106); LIPASE 41 U/L (23-300); SGOT/AST 36 U/L (14-36); SGPT/ALT 21 U/L (0-35); SODIUM 137 mmol/L (137-145); Total Protein 7.4 g/dL (6.3-8.2)
[2022-02-09 14:10] LABS: Potassium 4.7 mmol/L (3.5-5.1)
[2022-02-09 15:41] VITALS: PULSE 60
[2022-02-09 16:07] VITALS: O2SAT 98
[2022-02-09 16:08] VITALS: BP 158/82
--- NOTE | 2022-02-09 17:44 | XRAY ---
Indication: Left flank pain one week. Multiple contiguous axial images obtained through the abdomen and pelvis without contrast using renal stone protocol. Comparison: July 04, 2018 Lung bases again demonstrates bibasilar subsegmental atelectasis/scarring. Heart not enlarged. Again small hiatal hernia and right hemidiaphragm elevation. No renal calculus or evidence for obstructive uropathy in either system. Noncontrasted stomach and bowel loops nonobstructed. Stable descending duodenal diverticulum. Again scattered sigmoid diverticulosis with new mild proximal diverticulitis. Tiny free fluid but no walled off fluid collection or free air. Again 1.3 cm gallstone, bilateral parapelvic renal cysts, and hysterectomy. Remaining liver, pancreas, spleen, adrenal glands, kidneys, ureters, and bladder are unremarkable for noncontrast exam. There remains mild scattered aortoiliac calcifications without AAA. Osseous structures intact again with mild degenerative changes throughout the thoracolumbar spine. Impression: 1. Negative renal calculus or evidence for obstructive uropathy. 2. New sigmoid diverticulitis. No complications. 3. Again chronic findings including small hiatal hernia, duodenal diverticulum, cholelithiasis, bilateral renal cysts, right hemidiaphragm elevation, and chronic bony findings. Comment: Preliminary interpretation made by [facility]. No critical discrepancy.
== END 2022-02-09 16:22 | disposition home or self-care (01) ==
LOC: ED 13:26
DX: K57.32 Diverticulitis of large intestine without perforation or abscess without bleeding (principal); K80.20 Calculus of gallbladder without cholecystitis without obstruction; R10.9 Unspecified abdominal pain; I10 Essential (primary) hypertension; Z79.02 Long term (current) use of antithrombotics/antiplatelets; Z79.899 Other long term (current) drug therapy; Z28.310 Unvaccinated for COVID-19
CPT/HCPCS: 36415; 74176; 80053; 81015; 82150; 83690; 85025; 96360; 99284; 99291

== ENCOUNTER 2022-07-09 16:53 | Observation (INO) | payer MEDICARE, SELFPAY ==
[2022-07-09 18:01] LABS: Absolute Neutrophil Ct (ANC) 5.55 x10^3/uL (1.4-6.9); BASOPHIL % 0.3 % (0.0-0.4); Basophil (Absolute #) 0.02 x10^3/uL (0-0.4); Eosinophil % 0.8 % (0.00-5.0); Eosinophil (Absolute #) 0.06 x10^3/uL (0-0.5); Hemoglobin 13.8 g/dL (12.0-16.0); IMMATURE GRAN # 0.03 x10^3u/L (0.00-0.03); IMMATURE GRAN % 0.4 % (0.00-0.4); Lymphocyte (Absolute #) 1.22 x10^3/uL (1.0-4.6); Mean Cell Volume 97.4 fL (78-100); Mean Corpuscular Hgb Concent. 32.9 g/dL (32-36); Mean Platelet Volume 10.2 fL (7.5-11.0); Monocyte (Absolute #) 0.73 x10^3/uL (0.0-1.3); Monocytes % 9.6 % (0.0-12.0); Neutrophil % 72.9 % (36.0-66.0); Platelet Count 191 x10^3/uL (150-450); Red Blood Count 4.31 x10^6/uL (4.1-5.4); Red Cell Distribution Width 13.2 % (11.5-14.0); White Blood Count 7.6 x10^3/uL (4.0-10.5)
[2022-07-09 18:26] LABS: ALBUMIN 3.9 g/dL (3.5-5.0); ALKALINE PHOSPHATASE 64 U/L (38-126); ANION GAP 13.3 MEQ/L (5-15); BLOOD UREA NITROGEN 28 mg/dL (7-17); CHLORIDE 108 mmol/L (98-107); Calcium 8.8 mg/dL (8.4-10.2); Carbon Dioxide 25 mmol/L (22-30); Creatinine 1 0.87 mg/dL (0.52-1.04); EST GLOMERULAR FILTRATION RATE > 60.0 ML/MIN; Glucose 96 mg/dL (74-106); NT PRO BNPII 665 pg/mL (<300); Potassium 4.3 mmol/L (3.5-5.1); SGOT/AST 30 U/L (14-36); SGPT/ALT 34 U/L (0-35); SODIUM 142 mmol/L (137-145); Total Protein 6.6 g/dL (6.3-8.2)
--- NOTE | 2022-07-09 18:40 | ERPHSYRPT ---
- History of Present Illness Time Seen by Provider: 07/09/22 17:30 Source: patient Exam Limitations: no limitations Patient Subjective Stated Complaint: Pt states "I am having left arm pain. It started last night. I did not fall or hurt it. I have four stents and it made me nervous." Triage Nursing Assessment: Pt presented alert and oriented X3, skin pwd. pt ambulates with an upright steady gait, able to speak in clear full sentenecs pt in no apaprent respiratory distress. Physician History: Patient is a 72-year-old female presents to our ED with left arm pain. Patient states she has 4 cardiac stents. Patient states her last heart attack manifested as left arm pain. Patient's symptoms started last night. Symptoms have been intermittent. Symptoms are associated with slight nausea no vomiting. No diaphoresis. No trauma no fever no falls. Symptoms are mild to moderate in intensity. No specific worsening improving factors. Patient voices no other complaints or concerns at this time. Portions of this note were created with voice recognition technology. There may be grammatical, spelling, punctuation or sound alike errors Timing/Duration: yesterday Severity: moderate Modifying Factors: Improves With: nothing Associated Symptoms: nausea Allergies/Adverse Reactions: nitrofurantoin macrocrystalline [From Macrodantin] Allergy (Mild, Verified 02/09/22 13:42) morphine Adverse Reaction (Mild, Verified 02/09/22 13:42) Home Medications: Aspirin [Aspirin EC] 81 mg PO DAILY 05/30/14 [History] Atorvastatin Calcium [Lipitor] 10 mg PO DAILY 05/30/14 [History] Potassium Chloride Tab* [Klor Con 10 MEQ] 10 meq PO DAILY 05/30/14 [History] Carvedilol [Coreg 6.25 MG] 6.25 mg PO BID 07/04/18 [History] Prasugrel HCL 10 MG [Prasugrel] 10 mg PO DAILY 02/09/22 [History] Hx Tetanus, Diphtheria Vaccination/Date Given: Yes Hx Influenza Vaccination/Date Given: Yes Hx Pneumococcal Vaccination/Date Given: Yes Immunizations Up to Date: Yes Travel Risk - International Travel Have you traveled outside of the country in past 3 weeks: No - Coronavirus Screening Are you exhibiting any of the following symptoms?: No Close contact with a COVID-19 positive Pt in past 14-21 Days: No - Vaccine Status Have you recieved a Covid-19 vaccination: No - Review of Systems Constitutional: No Symptoms, No Fever, No Chills Eyes: No Symptoms Ears, Nose, & Throat: No Symptoms Respiratory: No Symptoms, No Cough, No Dyspnea Cardiac: No Symptoms, No Chest Pain, No Edema, No Syncope Abdominal/Gastrointestinal: No Symptoms, No Abdominal Pain, No Nausea, No Vomiting, No Diarrhea Genitourinary Symptoms: No Symptoms, No Dysuria Musculoskeletal: No Symptoms, No Back Pain, No Neck Pain Skin: No Symptoms, No Rash Neurological: No Symptoms, No Dizziness, No Focal Weakness, No Sensory Changes Psychological: No Symptoms Endocrine: No Symptoms Hematologic/Lymphatic: No Symptoms Immunological/Allergic: No Symptoms All Other Systems: Reviewed and Negative - Past Medical History Pertinent Past Medical History: Yes Neurological History: No Pertinent History ENT History: No Pertinent History Cardiac History: Coronary Artery Disease, Hypertension, Myocardial Infarction ([place]) Respiratory History: No Pertinent History Endocrine Medical History: No Pertinent History Musculoskeletal History: No Pertinent History GI Medical History: Diverticulitis History: No Pertinent History Psycho-Social History: No Pertinent History Female Reproductive Disorders: No Pertinent History Other Medical History: recently SOB schedlued for pulmonary function test tomorrow - Past Surgical History Past Surgical History: Yes Neuro Surgical History: No Pertinent History Cardiac: Cardiac Catheterization, Cardiac Stent Respiratory: No Pertinent History Gastrointestinal: No Pertinent History Genitourinary: No Pertinent History Musculoskeletal: Orthopedic Surgery Female Surgical History: Hysterectomy Other Surgical History: ORTHO CHILD--LT ARM - Social History Smoking Status: Never smoker Exposure to second hand smoke: No Drug Use: none Patient Lives Alone: No - Nursing Vital Signs Nursing Vital Signs: Initial Vital Signs Temperature 97.6 F 07/09/22 17:18 Pulse Rate 64 07/09/22 17:18 Respiratory Rate 20 07/09/22 17:18 Blood Pressure 177/108 07/09/22 17:18 O2 Sat by Pulse Oximetry 97 07/09/22 17:18 Pain Scale Pain Intensity 4 - Physical Exam General Appearance: no apparent distress, alert Eye Exam: PERRL/EOMI, eyes nml inspection Ears, Nose, Throat Exam: normal ENT inspection, TMs normal, pharynx normal, moist mucous membranes Neck Exam: normal inspection, non-tender, supple, full range of motion Respiratory Exam: normal breath sounds, lungs clear, airway intact, No respiratory distress Cardiovascular Exam: regular rate/rhythm, normal heart sounds, normal peripheral pulses Gastrointestinal/Abdomen Exam: soft, normal bowel sounds, No tenderness, No mass Pelvic Exam: not done Back Exam: normal inspection, normal range of motion, No CVA tenderness, No vertebral tenderness Extremity Exam: normal inspection, normal range of motion, pelvis stable Neurologic Exam: alert, oriented x 3, cooperative, normal mood/affect, nml cerebellar function, nml station & gait, sensation nml, No motor deficits Skin Exam: normal color, warm, dry, No rash Lymphatic Exam: No adenopathy SpO2 Interpretation: normal SpO2: 96 O2 Delivery: Room Air - Course Nursing assessment & vital signs reviewed: Yes EKG Interpreted by Me: RATE (53), Sinus Rhythm, NORMAL AXIS, NORMAL INTERVALS - Radiology Exams Chest X-ray Interpretation: Interpreted by me (Negative chest x-ray) Ordered Tests: Active Orders 24 hr Category Date Time Status [employer] STAT Care 07/09/22 17:53 Active EKG-ER Only STAT Care 07/09/22 17:53 Active IV Insertion STAT Care 07/09/22 17:53 Active Pulse Oximetry (ED) STAT Care 07/09/22 17:53 Active CHEST 1 VIEW (PORTABLE) Stat Exams 07/09/22 17:53 Taken CBC W DIFF Stat Lab 07/09/22 17:50 Completed CMP Stat Lab 07/09/22 17:50 Completed NT PRO BNPII Stat Lab 07/09/22 17:50 Completed TROPONIN Q4H Lab 07/09/22 17:50 Completed TROPONIN Q4H Lab 07/09/22 22:00 Ordered TROPONIN Q4H Lab 07/10/22 02:00 Ordered Lab/Rad Data: Laboratory Result Diagrams 07/09/22 17:50 07/09/22 17:50 Laboratory Results 07/09/22 07/09/22 07/09/22 Range/Units 18:30 17:50 17:50 WBC (4.0-10.5) x10^3/uL RBC (4.1-5.4) x10^6/uL Hgb (12.0-16.0) g/dL Hct (35-47) % MCV (78-100) fL MCH (26-32) pg MCHC (32-36) g/dL RDW (11.5-14.0) % Plt Count (150-450) x10^3/uL MPV (7.5-11.0) fL Gran % (36.0-66.0) % Immature Gran % (Auto) (0.00-0.4) % Nucleat RBC Rel Count (0.00-0.1) % Eos # (Auto) (0-0.5) x10^3/uL Immature Gran # (Auto) (0.00-0.03) x10^3u/L Absolute Lymphs (auto) (1.0-4.6) x10^3/uL Absolute Monos (auto) (0.0-1.3) x10^3/uL Absolute Nucleated RBC (0.00-0.01) x10^3u/L Lymphocytes % (24.0-44.0) % Monocytes % (0.0-12.0) % Eosinophils % (0.00-5.0) % Basophils % (0.0-0.4) % Absolute Granulocytes (1.4-6.9) x10^3/uL Basophils # (0-0.4) x10^3/uL Sodium 142 (137-145) mmol/L Potassium 4.3 (3.5-5.1) mmol/L Chloride 108 H (98-107) mmol/L Carbon Dioxide 25 (22-30) mmol/L Anion Gap 13.3 (5-15) MEQ/L BUN 28 H (7-17) mg/dL Creatinine 0.87 (0.52-1.04) mg/dL Estimated GFR > 60.0 ML/MIN Glucose 96 (74-106) mg/dL Calcium 8.8 (8.4-10.2) mg/dL Total Bilirubin 0.40 (0.2-1.3) mg/dL AST 30 (14-36) U/L ALT 34 (0-35) U/L Alkaline Phosphatase 64 (38-126) U/L Troponin I < 0.012 (0.000-0.034) ng/mL NT-Pro-B Natriuret Pep 665 (<300) pg/mL Serum Total Protein 6.6 (6.3-8.2) g/dL Albumin 3.9 (3.5-5.0) g/dL Influenza Type A Ag NEGATIVE (NEGATIVE) Influenza Type B Ag NEGATIVE (NEGATIVE) RSV (PCR) NEGATIVE (NEGATIVE) SARS-CoV-2 (PCR) NEGATIVE (NEGATIVE) 07/09/22 Range/Units 17:50 WBC 7.6 (4.0-10.5) x10^3/uL RBC 4.31 (4.1-5.4) x10^6/uL Hgb 13.8 (12.0-16.0) g/dL Hct 42.0 (35-47) % MCV 97.4 (78-100) fL MCH 32.0 (26-32) pg MCHC 32.9 (32-36) g/dL RDW 13.2 (11.5-14.0) % Plt Count 191 (150-450) x10^3/uL MPV 10.2 (7.5-11.0) fL Gran % 72.9 H (36.0-66.0) % Immature Gran % (Auto) 0.4 (0.00-0.4) % Nucleat RBC Rel Count 0.0 (0.00-0.1) % Eos # (Auto) 0.06 (0-0.5) x10^3/uL Immature Gran # (Auto) 0.03 (0.00-0.03) x10^3u/L Absolute Lymphs (auto) 1.22 (1.0-4.6) x10^3/uL Absolute Monos (auto) 0.73 (0.0-1.3) x10^3/uL Absolute Nucleated RBC 0.00 (0.00-0.01) x10^3u/L Lymphocytes % 16.0 L (24.0-44.0) % Monocytes % 9.6 (0.0-12.0) % Eosinophils % 0.8 (0.00-5.0) % Basophils % 0.3 (0.0-0.4) % Absolute Granulocytes 5.55 (1.4-6.9) x10^3/uL Basophils # 0.02 (0-0.4) x10^3/uL Sodium (137-145) mmol/L Potassium (3.5-5.1) mmol/L Chloride (98-107) mmol/L Carbon Dioxide (22-30) mmol/L Anion Gap (5-15) MEQ/L BUN (7-17) mg/dL Creatinine (0.52-1.04) mg/dL Estimated GFR ML/MIN Glucose (74-106) mg/dL Calcium (8.4-10.2) mg/dL Total Bilirubin (0.2-1.3) mg/dL AST (14-36) U/L ALT (0-35) U/L Alkaline Phosphatase (38-126) U/L Troponin I (0.000-0.034) ng/mL NT-Pro-B Natriuret Pep (<300) pg/mL Serum Total Protein (6.3-8.2) g/dL Albumin (3.5-5.0) g/dL Influenza Type A Ag (NEGATIVE) Influenza Type B Ag (NEGATIVE) RSV (PCR) (NEGATIVE) SARS-CoV-2 (PCR) (NEGATIVE) - Progress Progress: improved Progress Note: Case discussed with Dr. Ovalles at approximately 9 PM who accepts admission to observation. Patient reassessed. Blood pressure elevated on vehicle monitor technician however repeat was 190 systolic. Patient had not taken her p.m. blood pressure medications. We administered her blood pressure medications in our ED prior to being sent to the floor. Plan of care discussed with patient. She agrees to admission [facility] for further evaluation and treatment. 07/09/22 21:04 72-year-old female with a history of 4 cardiac stents presents to our ED with left arm pain. Physical exam unremarkable. Vitals reveals patient has hypertension. She has not taken her evening blood pressure meds. Blood pressure medications administered in our ED on her own supply. Test x-ray negative. CBC CMP negative. COVID-negative. BNP negative. Troponin negative. Patient received aspirin and nitroglycerin in our ED. Patient resting comfortably. Vital stable. Complaint is acute. Complexity of problem addressed is moderate. Acute complicated with systemic illness of nausea. No critical care time. Complexity of data reviewed and analyzed is moderate. EKG chest x-ray dependently reviewed and analyzed by Dr. Heaton. Laboratory studies ordered and reviewed by Dr. Heaton. Management discussed with hospitalist who excepts admission to observation. Plan of care discussed with patient. e agrees to admission [facility] for further evaluation and treatment. Patient served as an independent historian. Risk of complication and or risk of morbidity/mortality patient management is high. Patient will require hospitalization for further evaluation and treatment. Portions of this note were created with voice recognition technology. There may be grammatical, spelling, punctuation or sound alike errors 07/09/22 21:[address] Other (Arlene) Will see patient in: hospital (observation) Counseled pt/family regarding: lab results, diagnosis, rad results - Departure Departure Disposition: Observation Clinical Impression: Acute coronary syndrome, Hypertension, Arm pain Condition: Stable Critical Care Time: No Referrals: AGUSTIN RAY MD [Primary Care Provider] - Follow up/PCP as directed
[2022-07-09 19:17] LABS: INFLUENZA A NEGATIVE (NEGATIVE); INFLUENZA B NEGATIVE (NEGATIVE); RESPIRATORY SYNCTIAL VIRUS NEGATIVE (NEGATIVE); SARS-CoV-2 Xpert Express NEGATIVE (NEGATIVE)
[2022-07-09] MEDS ORDERED: NITRO-BID 2% UD PACKETS TOP ONE (21:05)
[2022-07-09] MEDS ORDERED: BABY ASPIRIN 81 MG CHEW PO ONE (21:05)
[2022-07-09] MEDS ORDERED: NITRO-BID 2% UD PACKETS ONE (21:10)
[2022-07-09] MEDS ORDERED: BABY ASPIRIN 81 MG CHEW ONE (21:10)
[2022-07-09] MEDS ORDERED: MILK OF MAGNESIA 30 ML PO PRN (21:38)
[2022-07-09] MEDS ORDERED: Senokot-S Tablet PO PRN (21:38)
[2022-07-09] MEDS ORDERED: MAALOX ES 30 ML UNIT DOSE PO PRN (21:38)
[2022-07-09] MEDS ORDERED: Zofran 4 MG/2 ML VIAL IV PRN (21:38)
[2022-07-09] MEDS ORDERED: TYLENOL 325 MG PO PRN (21:38)
--- NOTE | 2022-07-09 22:43 | XRAY ---
Indication: Left arm pain. Comparison: October 26, 2020 Portable chest again demonstrates right hemidiaphragm elevation and minimal left lung fibrosis/scarring. Heart borderline enlarged. Bony thorax intact. No new/acute findings.
[2022-07-10] MEDS ORDERED: MELATONIN PO PRN (00:08)
[2022-07-10] MEDS ORDERED: Apresoline 25 MG TABLET PO PRN (00:09)
--- NOTE | 2022-07-10 00:24 | PCM.HP ---
History of Present Illness - Chief Complaint Chief Complaint: arm pain History of Present Illness: 72 yo wf with hx of HTN, CAD(PCI times4), Obesity presents with 1.5 day hx of left arm pain with associated mild nausea. Pt denies chest pain or sob. Her prior anginal equiv was associated with arm pain. Pt denies worsening sob. When active denies this pain when exerting self. In ED ECG and Elsa unrevealing. BP high in ED. Pt states BP normally well controlled. - Review of Systems Constitutional: No Symptoms, Night Sweats Ears, Nose, & Throat: No Symptoms Respiratory: No Symptoms Cardiac: No Symptoms Abdominal/Gastrointestinal: No Symptoms Genitourinary Symptoms: No Symptoms Musculoskeletal: Arthralgias, Joint Pain Skin: No Symptoms Neurological: No Symptoms Psychological: No Symptoms Endocrine: No Symptoms Hematologic/Lymphatic: No Symptoms Immunological/Allergic: No Symptoms Medications & Allergies Home Medications: Home Medication List Aspirin [Aspirin EC] 81 mg PO DAILY 05/30/14 [History Confirmed 07/09/22] Atorvastatin Calcium [Lipitor] 10 mg PO DAILY 05/30/14 [History Confirmed 07/09/22] Potassium Chloride Tab* [Klor Con 10 MEQ] 10 meq PO DAILY 05/30/14 [History Confirmed 07/09/22] Carvedilol [Coreg 6.25 MG] 6.25 mg PO BID 07/04/18 [History Confirmed 07/09/22] Prasugrel HCL 10 MG [Prasugrel] 10 mg PO DAILY 02/09/22 [History Confirmed 07/09/22] Magnesium 400 mg PO HS 07/09/22 [History Confirmed 07/09/22] Melatonin 10 mg PO HS 07/09/22 [History Confirmed 07/09/22] Allergies/Adverse Reactions: Allergies Allergy/AdvReac Type Severity Reaction Status Date / Time nitrofurantoin Allergy Mild Verified 02/09/22 13:42 macrocrystalline [From Macrodantin] morphine AdvReac Mild Verified 02/09/22 13:42 - Past Medical History Past Medical History: Yes Neurological History: No Pertinent History ENT History: No Pertinent History Cardiac History: Coronary Artery Disease, Hypertension, Myocardial Infarction ([place]) Respiratory History: No Pertinent History Endocrine Medical History: No Pertinent History Musculoskelatal History: No Pertinent History GI Medical History: Diverticulitis History: No Pertinent History Pyscho-Social History: No Pertinent History Reproductive Disorders: No Pertinent History Comment: 4 stents - Past Surgical History Past Surgical History: Yes Neuro Surgical History: No Pertinent History Cardiac History: Cardiac Catheterization, Cardiac Stent Respiratory Surgery: No Pertinent History GI Surgical History: No Pertinent History Genitourinary Surgical Hx: No Pertinent History Musculskeletal Surgical Hx: Orthopedic Surgery Female Surgical History: Hysterectomy Other Surgical History: ORTHO CHILD--LT ARM - Social History Smoking Status: Never smoker Exposure to second hand smoke: No Alcohol: None Drug Use: none - Physical Exam Vital Signs: Vital Signs - 24 hr Temp Pulse Resp BP Pulse Ox 07/09/22 21:50 97.6 F 56 L 16 199/81 97 07/09/22 21:35 97.6 F 56 L 16 199/81 97 07/09/22 21:10 96 07/09/22 20:21 52 L 21 198/100 96 07/09/22 20:00 55 L 22 209/106 96 07/09/22 19:10 52 L 16 186/92 97 07/09/22 18:06 57 L 20 204/94 96 07/09/22 17:57 97 07/09/22 17:18 97.6 F 64 20 177/108 97 General Appearance: no apparent distress Neurologic Exam: alert, oriented x 3 Eye Exam: PERRL/EOMI, eyes nml inspection Ears, Nose, Throat Exam: normal ENT inspection Neck Exam: normal inspection Respiratory Exam: normal breath sounds Cardiovascular Exam: regular rate/rhythm Gastrointestinal/Abdomen Exam: soft, normal bowel sounds Extremity Exam: normal inspection Skin Exam: normal color, warm Results - Labs Lab/Micro Results: Lab Results-Last 24 Hours 07/09/22 07/09/22 07/09/22 Range/Units 17:50 17:50 17:50 WBC 7.6 (4.0-10.5) x10^3/uL RBC 4.31 (4.1-5.4) x10^6/uL Hgb 13.8 (12.0-16.0) g/dL Hct 42.0 (35-47) % MCV 97.4 (78-100) fL MCH 32.0 (26-32) pg MCHC 32.9 (32-36) g/dL RDW 13.2 (11.5-14.0) % Plt Count 191 (150-450) x10^3/uL MPV 10.2 (7.5-11.0) fL Gran % 72.9 H (36.0-66.0) % Immature Gran % (Auto) 0.4 (0.00-0.4) % Nucleat RBC Rel Count 0.0 (0.00-0.1) % Eos # (Auto) 0.06 (0-0.5) x10^3/uL Immature Gran # (Auto) 0.03 (0.00-0.03) x10^3u/L Absolute Lymphs (auto) 1.22 (1.0-4.6) x10^3/uL Absolute Monos (auto) 0.73 (0.0-1.3) x10^3/uL Absolute Nucleated RBC 0.00 (0.00-0.01) x10^3u/L Lymphocytes % 16.0 L (24.0-44.0) % Monocytes % 9.6 (0.0-12.0) % Eosinophils % 0.8 (0.00-5.0) % Basophils % 0.3 (0.0-0.4) % Absolute Granulocytes 5.55 (1.4-6.9) x10^3/uL Basophils # 0.02 (0-0.4) x10^3/uL Sodium 142 (137-145) mmol/L Potassium 4.3 (3.5-5.1) mmol/L Chloride 108 H (98-107) mmol/L Carbon Dioxide 25 (22-30) mmol/L Anion Gap 13.3 (5-15) MEQ/L BUN 28 H (7-17) mg/dL Creatinine 0.87 (0.52-1.04) mg/dL Estimated GFR > 60.0 ML/MIN Glucose 96 (74-106) mg/dL Calcium 8.8 (8.4-10.2) mg/dL Total Bilirubin 0.40 (0.2-1.3) mg/dL AST 30 (14-36) U/L ALT 34 (0-35) U/L Alkaline Phosphatase 64 (38-126) U/L Troponin I < 0.012 (0.000-0.034) ng/mL NT-Pro-B Natriuret Pep 665 (<300) pg/mL Serum Total Protein 6.6 (6.3-8.2) g/dL Albumin 3.9 (3.5-5.0) g/dL Influenza Type A Ag (NEGATIVE) Influenza Type B Ag (NEGATIVE) RSV (PCR) (NEGATIVE) SARS-CoV-2 (PCR) (NEGATIVE) 07/09/22 07/09/22 Range/Units 18:30 22:23 WBC (4.0-10.5) x10^3/uL RBC (4.1-5.4) x10^6/uL Hgb (12.0-16.0) g/dL Hct (35-47) % MCV (78-100) fL MCH (26-32) pg MCHC (32-36) g/dL RDW (11.5-14.0) % Plt Count (150-450) x10^3/uL MPV (7.5-11.0) fL Gran % (36.0-66.0) % Immature Gran % (Auto) (0.00-0.4) % Nucleat RBC Rel Count (0.00-0.1) % Eos # (Auto) (0-0.5) x10^3/uL Immature Gran # (Auto) (0.00-0.03) x10^3u/L Absolute Lymphs (auto) (1.0-4.6) x10^3/uL Absolute Monos (auto) (0.0-1.3) x10^3/uL Absolute Nucleated RBC (0.00-0.01) x10^3u/L Lymphocytes % (24.0-44.0) % Monocytes % (0.0-12.0) % Eosinophils % (0.00-5.0) % Basophils % (0.0-0.4) % Absolute Granulocytes (1.4-6.9) x10^3/uL Basophils # (0-0.4) x10^3/uL Sodium (137-145) mmol/L Potassium (3.5-5.1) mmol/L Chloride (98-107) mmol/L Carbon Dioxide (22-30) mmol/L Anion Gap (5-15) MEQ/L BUN (7-17) mg/dL Creatinine (0.52-1.04) mg/dL Estimated GFR ML/MIN Glucose (74-106) mg/dL Calcium (8.4-10.2) mg/dL Total Bilirubin (0.2-1.3) mg/dL AST (14-36) U/L ALT (0-35) U/L Alkaline Phosphatase (38-126) U/L Troponin I < 0.012 (0.000-0.034) ng/mL NT-Pro-B Natriuret Pep (<300) pg/mL Serum Total Protein (6.3-8.2) g/dL Albumin (3.5-5.0) g/dL Influenza Type A Ag NEGATIVE (NEGATIVE) Influenza Type B Ag NEGATIVE (NEGATIVE) RSV (PCR) NEGATIVE (NEGATIVE) SARS-CoV-2 (PCR) NEGATIVE (NEGATIVE) - Radiology Impressions Radiology Exams & Impressions: Radiology Procedures Category Date Time Status CHEST 1 VIEW (PORTABLE) Stat Exams 07/09/22 17:53 Completed - Other Procedures and Tests Respiratory Therapy 07/10/22 02:00 EKG ROUTINE 07/11/22 05:00 EKG ROUTINE 07/12/22 05:00 EKG ROUTINE 07/13/22 05:00 EKG ROUTINE Assessment/Plan (1) Chest pain Current Visit: Yes Status: Acute Assessment & Plan: 1. Atypical chest pain: manifesting with left arm pain. Mild nausea. ECG and trop:-. Cycle Elsa. Continue aspirin/effient. 2. Hypertensive urgency: BP high despite taking home meds. Start prn hydralazine. Will follow 3. Paralyzed right denise-diaphragm: noted for many years. Unclear if causing sxs. She has been stabilely dyspneic after exertion for some time 4. FEN: oral diet 5. PX: Lovenox suspect d/c in am, with outpt cards follow-up Michel Jacobs MD entirety of encounter done via telemedicine Code(s): R07.9 - CHEST PAIN, UNSPECIFIED Telemedicine Encounter - Telemedicine Encounter Telemedicine Encounter: The entirety of this encounter was performed via Telemedicine"
[2022-07-10 05:36] LABS: Risk Ratio 2.2
[2022-07-10 06:06] LABS: ANION GAP 11.4 MEQ/L (5-15); BLOOD UREA NITROGEN 22 mg/dL (7-17); CHLORIDE 109 mmol/L (98-107); Calcium 8.8 mg/dL (8.4-10.2); Carbon Dioxide 25 mmol/L (22-30); Creatinine 1 0.68 mg/dL (0.52-1.04); EST GLOMERULAR FILTRATION RATE > 60.0 ML/MIN; Glucose 99 mg/dL (74-106); Potassium 3.9 mmol/L (3.5-5.1); SODIUM 141 mmol/L (137-145)
[2022-07-10 07:56] VITALS: BP 170/77; PULSE 62; O2SAT 95
--- NOTE | 2022-07-10 08:07 | PCM.DS ---
Discharge Summary Date of Admission: 07/09/22 21:33 Admitting Physician: CHUN SABA MD Primary Care Provider: AGUSTIN RAY OCTAVIO Allergies Allergies nitrofurantoin macrocrystalline [From Macrodantin] Allergy (Mild, Verified 02/09/22 13:42) morphine Adverse Reaction (Mild, Verified 02/09/22 13:42) Hospital Summary - Hospital Course Hospital Course: patient with a history of cad follows with Dr Marina Dinero, admitted with left arm pain, previous angina equivalent symptom for her. this morning she feels well, she is pain-free. admits to increase stress at home caring for with Alzheimer's disease. - Vitals & Intake/Output Vital Signs: Vital Signs Temperature 96.2 F 07/10/22 07:54 Pulse Rate 62 07/10/22 07:54 Respiratory Rate 16 07/10/22 07:54 Blood Pressure 170/77 07/10/22 07:54 O2 Sat by Pulse Oximetry 95 07/10/22 07:54 Intake & Output: Intake & Output 07/07/22 07/08/22 07/09/22 07/10/22 11:59 11:59 11:59 11:59 Intake Total 1020 Output Total 300 Balance 720 Weight 89.5 kg - Lab Result Diagrams: 07/09/22 17:50 07/10/22 05:14 Lab Results-Last 24 Hrs: Lab Results-Last 24 Hours 07/09/22 07/09/22 07/09/22 Range/Units 17:50 17:50 17:50 WBC 7.6 (4.0-10.5) x10^3/uL RBC 4.31 (4.1-5.4) x10^6/uL Hgb 13.8 (12.0-16.0) g/dL Hct 42.0 (35-47) % MCV 97.4 (78-100) fL MCH 32.0 (26-32) pg MCHC 32.9 (32-36) g/dL RDW 13.2 (11.5-14.0) % Plt Count 191 (150-450) x10^3/uL MPV 10.2 (7.5-11.0) fL Gran % 72.9 H (36.0-66.0) % Immature Gran % (Auto) 0.4 (0.00-0.4) % Nucleat RBC Rel Count 0.0 (0.00-0.1) % Eos # (Auto) 0.06 (0-0.5) x10^3/uL Immature Gran # (Auto) 0.03 (0.00-0.03) x10^3u/L Absolute Lymphs (auto) 1.22 (1.0-4.6) x10^3/uL Absolute Monos (auto) 0.73 (0.0-1.3) x10^3/uL Absolute Nucleated RBC 0.00 (0.00-0.01) x10^3u/L Lymphocytes % 16.0 L (24.0-44.0) % Monocytes % 9.6 (0.0-12.0) % Eosinophils % 0.8 (0.00-5.0) % Basophils % 0.3 (0.0-0.4) % Absolute Granulocytes 5.55 (1.4-6.9) x10^3/uL Basophils # 0.02 (0-0.4) x10^3/uL Sodium 142 (137-145) mmol/L Potassium 4.3 (3.5-5.1) mmol/L Chloride 108 H (98-107) mmol/L Carbon Dioxide 25 (22-30) mmol/L Anion Gap 13.3 (5-15) MEQ/L BUN 28 H (7-17) mg/dL Creatinine 0.87 (0.52-1.04) mg/dL Estimated GFR > 60.0 ML/MIN Glucose 96 (74-106) mg/dL Calcium 8.8 (8.4-10.2) mg/dL Total Bilirubin 0.40 (0.2-1.3) mg/dL AST 30 (14-36) U/L ALT 34 (0-35) U/L Alkaline Phosphatase 64 (38-126) U/L Troponin I < 0.012 (0.000-0.034) ng/mL NT-Pro-B Natriuret Pep 665 (<300) pg/mL Serum Total Protein 6.6 (6.3-8.2) g/dL Albumin 3.9 (3.5-5.0) g/dL Triglycerides (30-150) mg/dL Cholesterol (50-200) mg/dL LDL Cholesterol (30-100) mg/dL HDL Cholesterol (40-60) mg/dL Heart Disease Risk Ratio Influenza Type A Ag (NEGATIVE) Influenza Type B Ag (NEGATIVE) RSV (PCR) (NEGATIVE) SARS-CoV-2 (PCR) (NEGATIVE) 07/09/22 07/09/22 07/10/22 Range/Units 18:30 22:23 04:39 WBC (4.0-10.5) x10^3/uL RBC (4.1-5.4) x10^6/uL Hgb (12.0-16.0) g/dL Hct (35-47) % MCV (78-100) fL MCH (26-32) pg MCHC (32-36) g/dL RDW (11.5-14.0) % Plt Count (150-450) x10^3/uL MPV (7.5-11.0) fL Gran % (36.0-66.0) % Immature Gran % (Auto) (0.00-0.4) % Nucleat RBC Rel Count (0.00-0.1) % Eos # (Auto) (0-0.5) x10^3/uL Immature Gran # (Auto) (0.00-0.03) x10^3u/L Absolute Lymphs (auto) (1.0-4.6) x10^3/uL Absolute Monos (auto) (0.0-1.3) x10^3/uL Absolute Nucleated RBC (0.00-0.01) x10^3u/L Lymphocytes % (24.0-44.0) % Monocytes % (0.0-12.0) % Eosinophils % (0.00-5.0) % Basophils % (0.0-0.4) % Absolute Granulocytes (1.4-6.9) x10^3/uL Basophils # (0-0.4) x10^3/uL Sodium (137-145) mmol/L Potassium (3.5-5.1) mmol/L Chloride (98-107) mmol/L Carbon Dioxide (22-30) mmol/L Anion Gap (5-15) MEQ/L BUN (7-17) mg/dL Creatinine (0.52-1.04) mg/dL Estimated GFR ML/MIN Glucose (74-106) mg/dL Calcium (8.4-10.2) mg/dL Total Bilirubin (0.2-1.3) mg/dL AST (14-36) U/L ALT (0-35) U/L Alkaline Phosphatase (38-126) U/L Troponin I < 0.012 (0.000-0.034) ng/mL NT-Pro-B Natriuret Pep (<300) pg/mL Serum Total Protein (6.3-8.2) g/dL Albumin (3.5-5.0) g/dL Triglycerides 44 (30-150) mg/dL Cholesterol 120 (50-200) mg/dL LDL Cholesterol 47 (30-100) mg/dL HDL Cholesterol 56 (40-60) mg/dL Heart Disease Risk Ratio 2.2 Influenza Type A Ag NEGATIVE (NEGATIVE) Influenza Type B Ag NEGATIVE (NEGATIVE) RSV (PCR) NEGATIVE (NEGATIVE) SARS-CoV-2 (PCR) NEGATIVE (NEGATIVE) 07/10/22 07/10/22 Range/Units 04:39 05:14 WBC (4.0-10.5) x10^3/uL RBC (4.1-5.4) x10^6/uL Hgb (12.0-16.0) g/dL Hct (35-47) % MCV (78-100) fL MCH (26-32) pg MCHC (32-36) g/dL RDW (11.5-14.0) % Plt Count (150-450) x10^3/uL MPV (7.5-11.0) fL Gran % (36.0-66.0) % Immature Gran % (Auto) (0.00-0.4) % Nucleat RBC Rel Count (0.00-0.1) % Eos # (Auto) (0-0.5) x10^3/uL Immature Gran # (Auto) (0.00-0.03) x10^3u/L Absolute Lymphs (auto) (1.0-4.6) x10^3/uL Absolute Monos (auto) (0.0-1.3) x10^3/uL Absolute Nucleated RBC (0.00-0.01) x10^3u/L Lymphocytes % (24.0-44.0) % Monocytes % (0.0-12.0) % Eosinophils % (0.00-5.0) % Basophils % (0.0-0.4) % Absolute Granulocytes (1.4-6.9) x10^3/uL Basophils # (0-0.4) x10^3/uL Sodium 141 (137-145) mmol/L Potassium 3.9 (3.5-5.1) mmol/L Chloride 109 H (98-107) mmol/L Carbon Dioxide 25 (22-30) mmol/L Anion Gap 11.4 (5-15) MEQ/L BUN 22 H (7-17) mg/dL Creatinine 0.68 (0.52-1.04) mg/dL Estimated GFR > 60.0 ML/MIN Glucose 99 (74-106) mg/dL Calcium 8.8 (8.4-10.2) mg/dL Total Bilirubin (0.2-1.3) mg/dL AST (14-36) U/L ALT (0-35) U/L Alkaline Phosphatase (38-126) U/L Troponin I < 0.012 (0.000-0.034) ng/mL NT-Pro-B Natriuret Pep (<300) pg/mL Serum Total Protein (6.3-8.2) g/dL Albumin (3.5-5.0) g/dL Triglycerides (30-150) mg/dL Cholesterol (50-200) mg/dL LDL Cholesterol (30-100) mg/dL HDL Cholesterol (40-60) mg/dL Heart Disease Risk Ratio Influenza Type A Ag (NEGATIVE) Influenza Type B Ag (NEGATIVE) RSV (PCR) (NEGATIVE) SARS-CoV-2 (PCR) (NEGATIVE) - Radiology Exams Ordered Rad Exams-Entire Visit: Radiology Procedures Category Date Time Status CHEST 1 VIEW (PORTABLE) Stat Exams 07/09/22 17:53 Completed - Procedures and Test Procedures and Tests throughout Hospitalization: Therapy Orders & Screens 07/09/22 21:38 EKG Q8HX2,QAMX3,PRN Comment: 07/10/22 02:00 EKG ROUTINE Comment: Diagnosis: Acute coronary syndrome, hypertension 07/11/22 05:00 EKG ROUTINE Comment: Diagnosis: Acute coronary syndrome, hypertension 07/12/22 05:00 EKG ROUTINE Comment: Diagnosis: Acute coronary syndrome, hypertension 07/13/22 05:00 EKG ROUTINE Comment: Diagnosis: Acute coronary syndrome, hypertension Discharge Exam General Appearance: no apparent distress Neurologic Exam: alert, oriented x 3 Respiratory Exam: normal breath sounds, lungs clear, No respiratory distress Cardiovascular Exam: regular rate/rhythm, normal heart sounds Gastrointestinal/Abdomen Exam: soft, No tenderness, No mass Extremity Exam: normal inspection, normal range of motion Skin Exam: normal color, warm, dry Final Diagnosis/Problem List - Final Discharge Diagnosis/Problem (1) Chest pain Current Visit: Yes Status: Acute Assessment & Plan: NC ruled out, f/u with cardiology. lipids are well managed on statin, continue aspirin and effient Code(s): R07.9 - CHEST PAIN, UNSPECIFIED - Discharge Disposition: Home, Self-Care Condition: Stable Prescriptions: Continue Aspirin [Aspirin EC] 81 mg PO DAILY Potassium Chloride Tab* [Klor Con] 10 meq PO DAILY Atorvastatin Calcium [Lipitor] 10 mg PO DAILY Carvedilol [Coreg ] 6.25 mg PO BID Prasugrel HCL 10 MG [Prasugrel] 10 mg PO DAILY Melatonin 10 mg PO HS Magnesium 400 mg PO HS Instructions: Angina (DC), Preventing Falls in Older Adults Follow up with: PLACIDO DINERO [CONSULTING PHYSICIAN] - Call for Appointment
[2022-07-10] MEDS ORDERED: COREG 12.5 MG PO SCH (10:00)
[2022-07-10] MEDS ORDERED: ENOXAPARIN SODIUM SQ SCH (10:00)
[2022-07-10] MEDS ORDERED: Prasugrel PO SCH (10:00)
[2022-07-10] MEDS ORDERED: Zocor 10MG PO SCH (22:00)
[2022-07-10] MEDS ORDERED: LIPITOR 40MG PO SCH (22:00)
== END 2022-07-10 08:40 | disposition home or self-care (01) ==
LOC: ED 16:53 → MED SURG 21:33
PROVIDERS: ADMIT Internal Medicine Critical Care Medicine; ATTEND Family Medicine
DX: R07.9 Chest pain, unspecified (principal); I25.10 Atherosclerotic heart disease of native coronary artery without angina pectoris; I10 Essential (primary) hypertension; E66.9 Obesity, unspecified; Z79.899 Other long term (current) drug therapy; Z20.828 Contact with and (suspected) exposure to other viral communicable diseases
CPT/HCPCS: 0241U; 36000; 36415; 71045; 80048; 80053; 80061; 83721; 83880; 84484; 85025; 93005; 93041; 94760; 99284; A9270-GY

== ENCOUNTER 2023-09-09 21:16 | Emergency (ER) | payer MEDICARE, SELFPAY ==
[2023-09-09 21:45] VITALS: PULSE 54; RESP 18; TEMP 98.5; O2SAT 95
[2023-09-09] MEDS: KEFLEX 500 MG PO ONE (21:46)
[2023-09-09] MEDS ORDERED: KEFLEX 500 MG ONE (21:50)
--- NOTE | 2023-09-09 21:51 | ERPHSYRPT ---
- History of Present Illness Time Seen by Provider: 09/09/23 21:45 Source: patient Exam Limitations: no limitations Physician History: 73-year-old female presents to our ED for evaluation of a dog scratch to her left hand. Patient's families members dog playfully jumped on her and scratched the dorsum of her left hand with its claw. Injury occurred is prior to arrival. Pain described as an ache that is localized. No radiation. Pain worse with movement and palpation. Patient declined an x-ray. She denies foreign body sensation. Patient voices no other complaints or concerns at this time. Patient declined pain medication Tetanus not up-to-date Portions of this note were created with voice recognition technology. There may be grammatical, spelling, punctuation or sound alike errors Timing/Duration: today Severity: moderate Modifying Factors: Improves With: nothing Associated Symptoms: denies symptoms Allergies/Adverse Reactions: nitrofurantoin macrocrystalline [From Macrodantin] Allergy (Mild, Verified 09/09/23 21:45) morphine Adverse Reaction (Mild, Verified 09/09/23 21:45) amoxicillin [From Augmentin] Adverse Reaction (Verified 09/09/23 21:45) clavulanic acid [From Augmentin] Adverse Reaction (Verified 09/09/23 21:45) Home Medications: Aspirin [Aspirin EC] 81 mg PO DAILY 05/30/14 [History] Atorvastatin Calcium [Lipitor] 10 mg PO DAILY 05/30/14 [History] Potassium Chloride Tab* [Klor Con] 10 meq PO DAILY 05/30/14 [History] Carvedilol [Coreg ] 6.25 mg PO BID 07/04/18 [History] Magnesium 400 mg PO HS 07/09/22 [History] Melatonin 10 mg PO HS 07/09/22 [History] Hx Tetanus, Diphtheria Vaccination/Date Given: Yes Hx Influenza Vaccination/Date Given: Yes Hx Pneumococcal Vaccination/Date Given: Yes - Review of Systems Constitutional: No Symptoms, No Fever, No Chills Eyes: No Symptoms Ears, Nose, & Throat: No Symptoms Respiratory: No Symptoms, No Cough, No Dyspnea Cardiac: No Symptoms, No Chest Pain, No Edema, No Syncope Abdominal/Gastrointestinal: No Symptoms, No Abdominal Pain, No Nausea, No Vomiting, No Diarrhea Genitourinary Symptoms: No Symptoms, No Dysuria Musculoskeletal: No Symptoms, No Back Pain, No Neck Pain Skin: No Symptoms, No Rash Neurological: No Symptoms, No Dizziness, No Focal Weakness, No Sensory Changes Psychological: No Symptoms Endocrine: No Symptoms Hematologic/Lymphatic: No Symptoms Immunological/Allergic: No Symptoms All Other Systems: Reviewed and Negative - Past Medical History Pertinent Past Medical History: Yes Neurological History: No Pertinent History ENT History: No Pertinent History Cardiac History: Coronary Artery Disease, Hypertension, Myocardial Infarction (SC) Respiratory History: No Pertinent History Endocrine Medical History: No Pertinent History Musculoskeletal History: No Pertinent History GI Medical History: Diverticulitis History: No Pertinent History Psycho-Social History: No Pertinent History Female Reproductive Disorders: No Pertinent History Other Medical History: 4 stents - Past Surgical History Past Surgical History: Yes Neuro Surgical History: No Pertinent History Cardiac: Cardiac Catheterization, Cardiac Stent Respiratory: No Pertinent History Gastrointestinal: No Pertinent History Genitourinary: No Pertinent History Musculoskeletal: Orthopedic Surgery Female Surgical History: Hysterectomy Other Surgical History: ORTHO CHILD--LT ARM - Social History Smoking Status: Never smoker Exposure to second hand smoke: No Drug Use: none Patient Lives Alone: No - Nursing Vital Signs Nursing Vital Signs: Initial Vital Signs Temperature 98.5 F 09/09/23 21:37 Pulse Rate 54 L 09/09/23 21:37 Respiratory Rate 18 09/09/23 21:37 Blood Pressure 204/74 09/09/23 21:37 O2 Sat by Pulse Oximetry 95 09/09/23 21:37 Pain Scale Pain Intensity 5 - Physical Exam General Appearance: no apparent distress, alert Eye Exam: PERRL/EOMI, eyes nml inspection Ears, Nose, Throat Exam: normal ENT inspection, moist mucous membranes Neck Exam: normal inspection, full range of motion Respiratory Exam: normal breath sounds, airway intact, No respiratory distress Cardiovascular Exam: regular rate/rhythm, normal heart sounds, normal peripheral pulses Gastrointestinal/Abdomen Exam: soft, normal bowel sounds, No tenderness, No mass Back Exam: normal inspection, normal range of motion, No CVA tenderness, No vertebral tenderness Extremity Exam: normal inspection, normal range of motion Neurologic Exam: alert, oriented x 3, cooperative, normal mood/affect, sensation nml, No motor deficits Skin Exam: normal color, warm, dry, No rash Lymphatic Exam: No adenopathy SpO2 Interpretation: normal SpO2: 95 O2 Delivery: Room Air - Course Nursing assessment & vital signs reviewed: Yes Ordered Tests: Medication Summary Discontinued Medications Generic Name Dose Route Start Last Admin Trade Name Ethan PRN Reason Stop Dose Admin Cephalexin HCl 500 mg 09/09/23 21:39 Cephalexin Mh500 Mg Capsule PO 09/09/23 21:40 STAT ONE - Progress Progress: improved Progress Note: 73-year-old female presents to our ED for evaluation and treatment of a scratch to the dorsal aspect of her left hand. Due to the nature of the wound we did not suture it closed. The wound measures approximately 2 cm. Wound irrigated by staff skin edges were approximated using Steri-Strips. Patient received a dose of Keflex. Patient states she is not allergic to amoxicillin as stated on her allergy profile. However patient states Augmentin irritates her stomach. She reports that Keflex is tolerable for about 4 to 5 days before it starts to bother her stomach. No indication for further workup at this time. Will discharge home. Patient agrees to follow-up with her primary care doctor within 48 hours for reevaluation. Tetanus updated in our ED Portions of this note were created with voice recognition technology. There may be grammatical, spelling, punctuation or sound alike errors Complexity problem addressed is moderate acute complicated. No critical care time. Complex of data reviewed and analyzed is none. Diagnosis made based on history and physical exam. No specialized testing ordered. Risk of complication and or risk of morbidity/mortality patient management is moderate. A prescription for Keflex forwarded to patient's pharmacy. Patient declined pain medication. However she states she will use [id number] pain medication as needed. Vital stable. Time spent to discharge patient is approximately 15 minutes. Plan of care established for shared decision making. No social determinants of health present impede follow-up. Portions of this note were created with voice recognition technology. There may be grammatical, spelling, punctuation or sound alike errors 09/09/23 21:48 09/09/23 21:54 Counseled pt/family regarding: diagnosis, need for follow-up - Departure Departure Disposition: Home Clinical Impression: Dog scratch, Superficial laceration Condition: Stable Critical Care Time: No Referrals: AGUSTIN RAY MD [Primary Care Provider] - Follow up/PCP as directed Additional Instructions: Discharge/Care Plan ALYSON JONES was seen on 09/09/23 in the Emergency Room. The patient was counseled regarding Diagnosis,Lab results, Imaging studies, need for follow up and when to return to the Emergency Room. Prescriptions given: Discharge Note I have spoken with the patient and/or caregivers. I have explained the patient's condition, diagnosis and treatment plan based on the information available to me at this time. I have answered the patient's and/or caregiver's questions and addressed any concerns. The patient and/or caregivers have as good understanding of the patient's diagnosis, condition and treatment plan as can be expected at this point. The vital signs have been stable. The patient's condition is stable and appropriate for discharge from the emergency department. The patient will pursue further outpatient evaluation with the primary care physician or other designated or consulting physician as outlined in the discharge instructions. The patient and/or caregivers are agreeable to this plan of care and follow-up instructions have been explained in detail. The patient and/or caregivers have received these instruction. The patient/and or caregivers are aware that any significant change in condition or worsening of symptoms should prompt an immediate return to this or the closest emergency department or call 911. Prescriptions: Cephalexin Mh 500 mg [Keflex 500 mg] 500 mg PO TID 5 Days #15 cap
[2023-09-09] MEDS ORDERED: Adacel Vial IM ONE (21:56)
[2023-09-09] MEDS: Adacel Vial IM ONE (21:58)
[2023-09-09 22:05] VITALS: BP 184/65
== END 2023-09-09 22:10 | disposition home or self-care (01) ==
LOC: ED 21:16
DX: S61.412A Laceration without foreign body of left hand, initial encounter (principal); W54.1XXA Struck by dog, initial encounter; I10 Essential (primary) hypertension; Z79.899 Other long term (current) drug therapy; Z23 Encounter for immunization
CPT/HCPCS: 90471; 90715; 99282; A9270-GY

== ENCOUNTER 2023-11-15 13:06 | Emergency (ER) | payer MEDICARE, SELFPAY ==
[2023-11-15 13:21] VITALS: O2SAT 98
[2023-11-15] MEDS ORDERED: Sodium Chloride 0.9% 1000 ML 0 ML ONE (13:48)
[2023-11-15] MEDS: Sodium Chloride 0.9% 1000 ML 1,000 ML IV STA (13:49)
[2023-11-15 13:50] LABS: Absolute Neutrophil Ct (ANC) 3.71 x10^3/uL (1.56-6.13); BASOPHIL % 0.4 % (0.1-1.2); Basophil (Absolute #) 0.02 x10^3/uL (0.01-0.08); Eosinophil % 1.5 % (0.7-5.8); Eosinophil (Absolute #) 0.08 x10^3/uL (0.04-0.36); Hematocrit 41.6 % (34.1-44.9); Hemoglobin 13.4 g/dL (11.2-15.7); IMMATURE GRAN # 0.02 x10^3u/L (0.001-0.031); IMMATURE GRAN % 0.4 % (0.001-0.429); Lymphocyte (Absolute #) 1.12 x10^3/uL (1.18-3.74); Lymphocytes % 20.7 % (19.3-51.7); Mean Cell Volume 95.9 fL (79.4-94.8); Mean Corpuscular Hemoglobin 30.9 pg (25.6-32.2); Mean Corpuscular Hgb Concent. 32.2 g/dL (32.2-35.5); Mean Platelet Volume 9.9 fL (9.4-12.3); Monocyte (Absolute #) 0.47 x10^3/uL (0.24-0.86); Monocytes % 8.7 % (4.7-12.5); Neutrophil % 68.3 % (34.0-71.1); Platelet Count 205 x10^3/uL (182-369); Red Blood Count 4.34 x10^6/uL (3.93-5.22); Red Cell Distribution Width 13.1 % (11.7-14.4); White Blood Count 5.4 x10^3/uL (3.98-10.04)
[2023-11-15 13:55] LABS: Appearance Clear (Clear); Bacteria None Seen /HPF (None Seen); Bilirubin Negative (Negative); Blood Negative (Negative); Epithelial Cells None Seen /HPF (None Seen); Glucose, Urine Negative (Negative); Hyaline Casts NONE SEEN /LPF (0-2); Ketones Negative (Negative); Leukocyte Esterase Trace (Negative); Nitrite Negative (Negative); Ph 6.5 (4.6-8.0); Protein,Urine Dip Negative (Negative); RBC 0-2 /HPF (0-5); Urobilinogen 0.2 mg/dL (0.2); WBC 0-2 /HPF (0-5)
[2023-11-15 13:59] LABS: ADD URINE CULTURE? NO (NO)
[2023-11-15] MEDS ORDERED: Sodium Chloride 0.9% 1000 ML 1,000 ML ONE (13:59)
[2023-11-15] MEDS ORDERED: TORAdol 30 mg Injection ONE (13:59)
[2023-11-15] MEDS ORDERED: FLAGYL 500 MG IVPB 500 MG/100 ML BAG IV ONE (13:59)
--- NOTE | 2023-11-15 14:00 | ERPHSYRPT ---
- History of Present Illness Time Seen by Provider: 11/15/23 13:56 Historian: patient Exam Limitations: no limitations Patient Subjective Stated Complaint: Abdominal pain Triage Nursing Assessment: Patient ambulated back to ED and transferred self to bed. Patient A+O X 3. Patient's skin pink, warm and dry. Patient complains of left lower abdominal pain 8/10 that started last night and has not gotten any better today. Patient complains of nausea, but denies vomiting or diarrhea. Abdomen soft and round with BS X 4. Physician History: 73-year-old female with significant past medical history of gallstones colonic diverticulosis hypertension. She started having a left lower quadrant abdominal pain yesterday night. She denies any diarrhea constipation nausea or vomiting fever or chills. She also denies any urinary disturbance. She is also denying any back pain shortness of breath chest pain blood in the stool or urine. Timing/Duration: yesterday Quality: cramping Abdominal Pain Onset Location: LLQ Pain Radiation: no radiation Severity of Pain-Max: moderate Severity of Pain-Current: moderate Associated Symptoms: denies symptoms Previous symptoms: same symptoms as today Body Map: 1 - pain Allergies/Adverse Reactions: nitrofurantoin macrocrystalline [From Macrodantin] Allergy (Mild, Verified 11/15/23 13:15) morphine Adverse Reaction (Mild, Verified 11/15/23 13:15) amoxicillin [From Augmentin] Adverse Reaction (Verified 11/15/23 13:15) clavulanic acid [From Augmentin] Adverse Reaction (Verified 11/15/23 13:15) Home Medications: Aspirin [Aspirin EC] 81 mg PO DAILY 05/30/14 [History] Atorvastatin Calcium [Lipitor] 10 mg PO HS 05/30/14 [History] Potassium Chloride Tab* [Klor Con] 10 meq PO DAILY 05/30/14 [History] Carvedilol [Coreg ] 6.25 mg PO BID 07/04/18 [History] Magnesium 400 mg PO HS 07/09/22 [History] Melatonin 10 mg PO HS 07/09/22 [History] Hx Tetanus, Diphtheria Vaccination/Date Given: Yes Hx Influenza Vaccination/Date Given: Yes Hx Pneumococcal Vaccination/Date Given: Yes Immunizations Up to Date: Yes Travel Risk - International Travel Have you traveled outside of the country in past 3 weeks: No - Emerging Infectious Disease Are you exhibiting symptoms associated with any current EIDs: No - Review of Systems Constitutional: No Fever, No Chills Eyes: No Symptoms Ears, Nose, & Throat: No Symptoms Respiratory: No Cough, No Dyspnea Cardiac: No Chest Pain, No Edema, No Syncope Abdominal/Gastrointestinal: Abdominal Pain, No Nausea, No Vomiting, No Diarrhea Genitourinary Symptoms: No Dysuria Musculoskeletal: No Back Pain, No Neck Pain Skin: No Rash Neurological: No Dizziness, No Focal Weakness, No Sensory Changes Psychological: No Symptoms Endocrine: No Symptoms All Other Systems: Reviewed and Negative - Past Medical History Pertinent Past Medical History: Yes Neurological History: No Pertinent History ENT History: No Pertinent History Cardiac History: Coronary Artery Disease, Hypertension, Myocardial Infarction ([place]) Respiratory History: No Pertinent History Endocrine Medical History: No Pertinent History Musculoskeletal History: No Pertinent History GI Medical History: Diverticulitis History: No Pertinent History Psycho-Social History: No Pertinent History Female Reproductive Disorders: No Pertinent History Other Medical History: 4 stents - Past Surgical History Past Surgical History: Yes Neuro Surgical History: No Pertinent History Cardiac: Cardiac Catheterization, Cardiac Stent Respiratory: No Pertinent History Gastrointestinal: No Pertinent History Genitourinary: No Pertinent History Musculoskeletal: Orthopedic Surgery Female Surgical History: Hysterectomy Other Surgical History: ORTHO CHILD--LT ARM - Social History Smoking Status: Never smoker Exposure to second hand smoke: No Drug Use: none Patient Lives Alone: No - Social Determinants of Health Will the patient participate in the screening: Yes Do you worry about a steady place to live?: No Do you have any problems with any of the following?: No known problems In the past 12 months,have you had to go without utilities?: No Transportation Issues: No Has anyone in your support network made you feel unsafe?: No Have you or anyone in your house had to go without enough: No - Nursing Vital Signs Nursing Vital Signs: Initial Vital Signs O2 Sat by Pulse Oximetry 98 11/15/23 13:15 Pain Scale Pain Intensity 8 - Physical Exam General Appearance: no apparent distress, alert Eye Exam: PERRL/EOMI, eyes nml inspection Ears, Nose, Throat Exam: normal ENT inspection, pharynx normal, moist mucous membranes Neck Exam: normal inspection, non-tender, supple, full range of motion Respiratory Exam: normal breath sounds, lungs clear, No respiratory distress Cardiovascular Exam: regular rate/rhythm, normal heart sounds Gastrointestinal/Abdomen Exam: soft, tenderness (LLQ), No mass Back Exam: normal inspection, normal range of motion, No CVA tenderness, No vertebral tenderness Extremity Exam: normal inspection, normal range of motion, pelvis stable Neurologic Exam: alert, oriented x 3, cooperative, normal mood/affect, nml c erebellar function, sensation nml, No motor deficits Skin Exam: normal color, warm, dry SpO2: 98 - Course Nursing assessment & vital signs reviewed: Yes Ordered Tests: Active Orders 24 hr Category Date Time Status AMYLASE Stat Lab 11/15/23 13:40 Completed CBC W DIFF Stat Lab 11/15/23 13:40 Completed CMP Stat Lab 11/15/23 13:40 Completed LIPASE Stat Lab 11/15/23 13:40 Completed UA W/RFX UR CULTURE Stat Lab 11/15/23 13:40 Completed Medication Summary Generic Name Dose Route Start Last Admin Trade Name Freq PRN Reason Stop Dose Admin Sodium Chloride 1,000 mls @ 999 mls/hr 11/15/23 13:35 11/15/23 13:49 Sodium Chloride 0.9% 1000 Ml IV 11/15/23 14:35 999 mls/hr .Q1H1M STA Administration Metronidazole 500 mg in 100 mls @ 200 mls/hr 11/15/23 13:55 11/15/23 14:01 Flagyl 500 Mg Ivpb IV 11/15/23 14:24 200 mls/hr STAT STA 200 mls/hr Administration Discontinued Medications Generic Name Dose Route Start Last Admin Trade Name Freq PRN Reason Stop Dose Admin Sodium Chloride Confirm 11/15/23 13:48 Sodium Chloride 0.9% 1000 Ml Administered 11/15/23 13:49 Dose 1,000 mls @ ud .ROUTE .STK-MED ONE Sodium Chloride Confirm 11/15/23 13:59 Sodium Chloride 0.9% 1000 Ml Administered 11/15/23 14:00 Dose 1,000 mls @ ud .ROUTE .STK-MED ONE Metronidazole Confirm 11/15/23 13:59 Flagyl 500 Mg Ivpb Administered 11/15/23 14:00 Dose 500 mg in 100 mls @ ud IV .STK-MED ONE Sodium Chloride 1,000 mls @ 125 mls/hr 11/15/23 14:15 11/15/23 14:07 Sodium Chloride 0.9% 1000 Ml IV 12/15/23 14:14 125 mls/hr .Q8H CINTHYA Administration Ketorolac Tromethamine 30 mg 11/15/23 13:54 11/15/23 14:01 Ketorolac Tromethamine 30 Mg/Ml Inj IV 11/15/23 13:55 30 mg STAT ONE Administration Ketorolac Tromethamine Confirm 11/15/23 13:59 Ketorolac Tromethamine 30 Mg/Ml Inj Administered 11/15/23 14:00 Dose 30 mg .ROUTE .STK-MED ONE Lab/Rad Data: Laboratory Result Diagrams 11/15/23 13:40 11/15/23 13:40 Laboratory Results 11/15/23 11/15/23 11/15/23 Range/Units 13:40 13:40 13:40 WBC 5.4 (3.98-10.04) x10^3/uL RBC 4.34 (3.93-5.22) x10^6/uL Hgb 13.4 (11.2-15.7) g/dL Hct 41.6 (34.1-44.9) % MCV 95.9 H (79.4-94.8) fL MCH 30.9 (25.6-32.2) pg MCHC 32.2 (32.2-35.5) g/dL RDW 13.1 (11.7-14.4) % Plt Count 205 (182-369) x10^3/uL MPV 9.9 (9.4-12.3) fL Gran % 68.3 (34.0-71.1) % Immature Gran % (Auto) 0.4 (0.001-0.429) % Nucleat RBC Rel Count 0.0 (0.00-0.2) % Eos # (Auto) 0.08 (0.04-0.36) x10^3/uL Immature Gran # (Auto) 0.02 (0.001-0.031) x10^3u/L Absolute Lymphs (auto) 1.12 L (1.18-3.74) x10^3/uL Absolute Monos (auto) 0.47 (0.24-0.86) x10^3/uL Absolute Nucleated RBC 0.00 (0.00-0.012) x10^3u/L Lymphocytes % 20.7 (19.3-51.7) % Monocytes % 8.7 (4.7-12.5) % Eosinophils % 1.5 (0.7-5.8) % Basophils % 0.4 (0.1-1.2) % Absolute Granulocytes 3.71 (1.56-6.13) x10^3/uL Basophils # 0.02 (0.01-0.08) x10^3/uL Sodium 140 (135-145) mmol/L Potassium 4.5 (3.5-5.1) mmol/L Chloride 106 (98-107) mmol/L Carbon Dioxide 25 (22-30) mmol/L Anion Gap 13.8 (5-15) MEQ/L BUN 20 H (7-17) mg/dL Creatinine 0.63 (0.52-1.04) mg/dL Estimated GFR 92.5 ML/MIN Glucose 104 (74-106) mg/dL Calcium 9.3 (8.4-10.2) mg/dL Total Bilirubin 0.40 (0.2-1.3) mg/dL AST 30 (14-36) U/L ALT 21 (0-35) U/L Alkaline Phosphatase 84 (38-126) U/L Serum Total Protein 7.2 (6.3-8.2) g/dL Albumin 4.2 (3.5-5.0) g/dL Amylase 71 (30-110) U/L Lipase 56 (23-300) U/L Urine Color Yellow (Yellow) Urine Appearance Clear (Clear) Urine pH 6.5 (4.6-8.0) Ur Specific [place] 1.010 (1.005-1.030) Urine Protein Negative (Negative) Urine Glucose (UA) Negative (Negative) mg/dL Urine Ketones Negative (Negative) Urine Blood Negative (Negative) Urine Nitrite Negative (Negative) Urine Bilirubin Negative (Negative) Urine Urobilinogen 0.2 (0.2) mg/dL Ur Leukocyte Esterase Trace A (Negative) U Hyaline Cast (Auto) NONE SEEN (0-2) /LPF Urine Microscopic RBC 0-2 (0-5) /HPF Urine Microscopic WBC 0-2 (0-5) /HPF Ur Epithelial Cells None Seen (None Seen) /HPF Urine Bacteria None Seen (None Seen) /HPF Urine Culture Reflexed NO (NO) - Progress Progress: improved, pain not gone completely Counseled pt/family regarding: lab results, diagnosis, need for follow-up Medical Desision Making - Diagnostic Testing Diagnostic test were ordered, analyzed, and reviewed by me: Yes - Risk of complications Low Risk: Low risk of morbidity from additional dx testing or treatment - Departure Departure Disposition: Home Clinical Impression: Diverticulitis large intestine Qualifiers: Diverticulitis bleeding: without bleeding Diverticulitis complication: without perforation or abscess Qualified Code(s): K57.32 - Diverticulitis of large intestine without perforation or abscess without bleeding Condition: Stable Critical Care Time: No Referrals: AGUSTIN RAY MD [Primary Care Provider] - Follow up/PCP as directed Instructions: Diverticulitis, Diverticulitis - Discharge instructions Additional Instructions: ABDOMINAL PAIN 1. There are several different causes for abdominal pain, some of which may not be able to be identified on initial examination. 2. The important thing to remember is that bodily functions can change in a short period of time. If you notice any of the following symptoms, return to the emergency department or consult your doctor immediately: A. Worsening pain or no improvement in the next 12 hours. B. Increasing, severe abdominal pain C. Blood in stool D. Black stools E. Persistent vomiting F. Fever or chills or other symptoms Discharge/Care Plan ALYSON JONES was seen on 11/15/23 in the Emergency Room. The patient was counseled regarding Diagnosis,Lab results, Imaging studies, need for follow up and when to return to the Emergency Room. Prescriptions given: Discharge Note I have spoken with the patient and/or caregivers. I have explained the patient's condition, diagnosis and treatment plan based on the information available to me at this time. I have answered the patient's and/or caregiver's questions and addressed any concerns. The patient and/or caregivers have as good understanding of the patient's diagnosis, condition and treatment plan as can be expected at this point. The vital signs have been stable. The patient's condition is stable and appropriate for discharge from the emergency department. The patient will pursue further outpatient evaluation with the primary care physician or other designated or consulting physician as outlined in the discharge instructions. The patient and/or caregivers are agreeable to this plan of care and follow-up instructions have been explained in detail. The patient and/or caregivers have received these instruction. The patient/and or caregivers are aware that any significant change in condition or worsening of symptoms should prompt an immediate return to this or the closest emergency department or call 911. ALYSON JONES was seen on 11/15/23 n the Emergency Room. At that time you were treated for an emergent condition, during your visit Laboratory, Radiology and/or other procedures may have been ordered. It is very important that you follow-up with your Primary Care Physician AGUSTIN RAY within the next 24- 48 hours to review your Emergency Room visit and the final results of testing th at was ordered. Some test results such as Urine Cultures, Blood Cultures, and other cultures if ordered will not be finalized for 24-48 hours. If you do not have a Primary Care Provider please call the medical records department at [phone] to obtain a copy of your results or you may sign into our patient portal to obtain these results by visiting us @ [email or web address] and completing the following steps: 1. Click on the Patient Portal link 2. Click the Patient Self Enrollment Link to complete the enrollment form and entering your 3. Once the enrollment form is completed you will receive an email with a temporary ID and password at the email address you provided. 4. Next choose a user name and password. Your user name must be at least 4 characters long and your password must be at least 4 characters long. 5. Choose a security question from the list and provide your answer to the question. If you already have signed into the Health Portal you may access your Health Care Information 30/09 by the following steps: 1. Login to our website @ [email or web address] 2. Enter your original user name and password. FAQS The [facility] Health Portal is an online tool that contains your Lab Results, Radiology Reports, Visit History, Discharge Instructions and Health Summary Lab and Radiology Results will not be available for 72 hours on the portal. The Portal is a secure site, passwords are encryted and URLs are re-written so they cannot be copied and pasted. You and authorized family members are the only ones who can access your Portal. Also there is a timeout feature that protects your information if you leave the Portal page open. If you have technical difficulty please use the Contact Us link on the page this will allow you to submit any questions you have regarding the Portal or you may contact the Medical Record Department at [phone]. Prescriptions: Metronidazole 500 mg [Flagyl 500 MG] 500 mg PO TID #21 tablet
[2023-11-15] MEDS: FLAGYL 500 MG IVPB 500 MG/100 ML BAG IV STA (14:01)
[2023-11-15] MEDS: TORAdol 30 mg Injection IV ONE (14:01)
[2023-11-15 14:02] LABS: ALBUMIN 4.2 g/dL (3.5-5.0); ANION GAP 13.8 MEQ/L (5-15); BILIRUBIN,TOTAL 0.4 mg/dL (0.2-1.3); Calcium 9.3 mg/dL (8.4-10.2); Creatinine 1 0.63 mg/dL (0.52-1.04); EST GLOMERULAR FILTRATION RATE 92.5 ML/MIN; Potassium 4.5 mmol/L (3.5-5.1); Total Protein 7.2 g/dL (6.3-8.2)
[2023-11-15] MEDS: Sodium Chloride 0.9% 1000 ML 1,000 ML IV SCH (14:03)
[2023-11-15 15:00] VITALS: BP 186/88; PULSE 60; RESP 20; TEMP 97.3
== END 2023-11-15 15:01 | disposition home or self-care (01) ==
LOC: ED 13:06
DX: K57.32 Diverticulitis of large intestine without perforation or abscess without bleeding (principal); R10.32 Left lower quadrant pain; I10 Essential (primary) hypertension; Z79.899 Other long term (current) drug therapy
CPT/HCPCS: 36000; 36415; 80053; 81001; 82150; 83690; 85025; 96360; 96365; 96374; 99284; J1885

== ENCOUNTER 2024-06-08 13:34 | Emergency (ER) | payer MEDICARE, SELFPAY ==
--- NOTE | 2024-06-08 13:43 | ERPHSYRPT ---
- History of Present Illness Time Seen by Provider: 06/08/24 13:43 Source: patient, family Exam Limitations: no limitations Physician History: This is a 73-year-old white female patient of Dr. Ray who arrives by private vehicle because of a 3-day history of right chest pain on deep inspiration associated with fever and chills. She began having coughing yesterday. Her cough is nonproductive. Her pain is when she coughs or has deep inspiration. She states that the right chest pain feels completely different than her OR symptoms in the past. Patient has a history of hyperlipidemia, hypertension, coronary artery disease (for cardiac stents) Timing/Duration: day(s) (3), other (Not worse but) Cough Quality/Degree: mild, dry cough Possible Cause: no prior episodes ( no improvement in persistent) Modifying Factors: Improves With: coughing Associated Symptoms: chills, chest pain/soreness (With coughing and deep inspiration), cough Allergies/Adverse Reactions: nitrofurantoin macrocrystalline [From Macrodantin] Allergy (Mild, Verified 06/08/24 13:54) morphine Adverse Reaction (Mild, Verified 06/08/24 13:54) amoxicillin [From Augmentin] Adverse Reaction (Verified 06/08/24 13:54) clavulanic acid [From Augmentin] Adverse Reaction (Verified 06/08/24 13:54) Home Medications: Aspirin [Aspirin EC] 81 mg PO DAILY 05/30/14 [History] Atorvastatin Calcium [Lipitor] 10 mg PO HS 05/30/14 [History] Potassium Chloride Tab* [Klor Con] 10 meq PO DAILY 05/30/14 [History] Carvedilol [Coreg ] 6.25 mg PO BID 07/04/18 [History] Magnesium 400 mg PO HS 07/09/22 [History] Melatonin 10 mg PO HS 07/09/22 [History] Hx Tetanus, Diphtheria Vaccination/Date Given: Yes Hx Influenza Vaccination/Date Given: Yes Hx Pneumococcal Vaccination/Date Given: Yes Travel Risk - International Travel Have you traveled outside of the country in past 3 weeks: No - Emerging Infectious Disease Are you exhibiting symptoms associated with any current EIDs: No - Review of Systems Constitutional: Chills Eyes: No Symptoms Ears, Nose, & Throat: No Symptoms Respiratory: Cough Cardiac: Chest Pain (Coughing and deep inspiration) Abdominal/Gastrointestinal: No Symptoms Genitourinary Symptoms: No Symptoms Musculoskeletal: No Symptoms Skin: No Symptoms Neurological: No Symptoms Psychological: No Symptoms Endocrine: No Symptoms Hematologic/Lymphatic: No Symptoms Immunological/Allergic: No Symptoms All Other Systems: Reviewed and Negative - Past Medical History Pertinent Past Medical History: Yes Neurological History: No Pertinent History ENT History: No Pertinent History Cardiac History: Coronary Artery Disease, Hypertension, Myocardial Infarction (OR) Respiratory History: No Pertinent History Endocrine Medical History: No Pertinent History Musculoskeletal History: No Pertinent History GI Medical History: Diverticulitis History: No Pertinent History Psycho-Social History: No Pertinent History Female Reproductive Disorders: No Pertinent History Other Medical History: 4 stents - Past Surgical History Past Surgical History: Yes Neuro Surgical History: No Pertinent History Cardiac: Cardiac Catheterization, Cardiac Stent Respiratory: No Pertinent History Gastrointestinal: No Pertinent History Genitourinary: No Pertinent History Musculoskeletal: Orthopedic Surgery Female Surgical History: Hysterectomy Other Surgical History: ORTHO CHILD--LT ARM - Social History Smoking Status: Never smoker Exposure to second hand smoke: No Drug Use: none Patient Lives Alone: No - Social Determinants of Health Will the patient participate in the screening: Yes Do you worry about a steady place to live?: No In the past 12 months,have you had to go without utilities?: No Transportation Issues: No Has anyone in your support network made you feel unsafe?: No Have you or anyone in your house had to go w/o enough food: No - Nursing Vital Signs Nursing Vital Signs: Initial Vital Signs Temperature 97.6 F 06/08/24 13:54 Pulse Rate 68 06/08/24 13:54 Respiratory Rate 20 06/08/24 13:54 Blood Pressure 127/75 06/08/24 13:54 O2 Sat by Pulse Oximetry 97 06/08/24 13:54 Pain Scale Pain Intensity 0 - Physical Exam General Appearance: no apparent distress, alert, anxiety Eye Exam: PERRL/EOMI, eyes nml inspection Ears, Nose, Throat Exam: normal ENT inspection, pharynx normal, moist mucous membranes Neck Exam: normal inspection, non-tender, supple, full range of motion Respiratory Exam: normal breath sounds, chest tenderness (With deep inspiration), lungs clear, No respiratory distress, No airway intact Cardiovascular Exam: regular rate/rhythm, normal heart sounds, normal peripheral pulses Gastrointestinal/Abdomen Exam: soft, normal bowel sounds, No tenderness Pelvic Exam: not done Rectal Exam: not done Back Exam: normal inspection, normal range of motion, No CVA tenderness, No vertebral tenderness Extremity Exam: normal inspection, normal range of motion, pelvis stable Neurologic Exam: alert, oriented x 3, cooperative, licensed physical therapist assistant II-XII nml as tested, nml cerebellar function, nml station & gait, sensation nml Skin Exam: normal color, warm, dry Lymphatic Exam: No adenopathy SpO2 Interpretation: normal O2 Delivery: Room Air - Course Nursing assessment & vital signs reviewed: Yes EKG Interpreted by Me: RATE (69), Sinus Rhythm, NORMAL AXIS, NORMAL INTERVALS, NORMAL QRS, NORMAL ST-T, Other (LVH by voltage. QTc 449. Anterior Q waves possibly due to LVH. I see no acute ischemic changes on today's twelve-lead EKG.) Ordered Tests: Active Orders 24 hr Category Date Time Status Dairy Manager STAT Care 06/08/24 14:14 Active EKG-ER Only STAT Care 06/08/24 14:13 Active CHEST 1 VIEW (PORTABLE) Stat Exams 06/08/24 14:14 Completed CBC W DIFF Stat Lab 06/08/24 14:25 Completed CMP Stat Lab 06/08/24 14:25 Completed D-DIMER QUANTITATIVE Stat Lab 06/08/24 14:25 Completed MAGNESIUM Stat Lab 06/08/24 14:25 Completed TROPONIN Q4H Lab 06/08/24 14:25 Completed TROPONIN Q4H Lab 06/08/24 18:15 Ordered TROPONIN Q4H Lab 06/08/24 22:15 Ordered Lab/Rad Data: Laboratory Result Diagrams 06/08/24 14:25 06/08/24 14:25 Laboratory Results 06/08/24 06/08/24 06/08/24 Range/Units 14:25 14:25 14:25 WBC (3.98-10.04) x10^3/uL RBC (3.93-5.22) x10^6/uL Hgb (11.2-15.7) g/dL Hct (34.1-44.9) % MCV (79.4-94.8) fL MCH (25.6-32.2) pg MCHC (32.2-35.5) g/dL RDW (11.7-14.4) % Plt Count (182-369) x10^3/uL MPV (9.4-12.3) fL Gran % (34.0-71.1) % Immature Gran % (Auto) (0.001-0.429) % Nucleat RBC Rel Count (0.00-0.2) % Eos # (Auto) (0.04-0.36) x10^3/uL Immature Gran # (Auto) (0.001-0.031) x10^3u/L Absolute Lymphs (auto) (1.18-3.74) x10^3/uL Absolute Monos (auto) (0.24-0.86) x10^3/uL Absolute Nucleated RBC (0.00-0.012) x10^3u/L Lymphocytes % (19.3-51.7) % Monocytes % (4.7-12.5) % Eosinophils % (0.7-5.8) % Basophils % (0.1-1.2) % Absolute Granulocytes (1.56-6.13) x10^3/uL Basophils # (0.01-0.08) x10^3/uL D-Dimer 0.48 (0.0-0.50) mg/L Sodium (135-145) mmol/L Potassium (3.5-5.1) mmol/L Chloride (98-107) mmol/L Carbon Dioxide (22-30) mmol/L Anion Gap (5-15) MEQ/L BUN (7-17) mg/dL Creatinine (0.52-1.04) mg/dL Estimated GFR ML/MIN Glucose (74-106) mg/dL Calcium (8.4-10.2) mg/dL Magnesium (1.6-2.3) mg/dL Total Bilirubin (0.2-1.3) mg/dL AST (14-36) U/L ALT (0-35) U/L Alkaline Phosphatase (38-126) U/L Troponin I < 0.012 (0.000-0.033) ng/mL Serum Total Protein (6.3-8.2) g/dL Albumin (3.5-5.0) g/dL Influenza Type A Ag NEGATIVE (NEGATIVE) Influenza Type B Ag NEGATIVE (NEGATIVE) RSV (PCR) NEGATIVE (NEGATIVE) SARS-CoV-2 (PCR) NEGATIVE (NEGATIVE) 06/08/24 06/08/24 Range/Units 14:25 14:25 WBC 9.8 (3.98-10.04) x10^3/uL RBC 4.00 (3.93-5.22) x10^6/uL Hgb 12.3 (11.2-15.7) g/dL Hct 37.8 (34.1-44.9) % MCV 94.5 (79.4-94.8) fL MCH 30.8 (25.6-32.2) pg MCHC 32.5 (32.2-35.5) g/dL RDW 13.6 (11.7-14.4) % Plt Count 223 (182-369) x10^3/uL MPV 9.6 (9.4-12.3) fL Gran % 79.5 H (34.0-71.1) % Immature Gran % (Auto) 0.3 (0.001-0.429) % Nucleat RBC Rel Count 0.0 (0.00-0.2) % Eos # (Auto) 0.11 (0.04-0.36) x10^3/uL Immature Gran # (Auto) 0.03 (0.001-0.031) x10^3u/L Absolute Lymphs (auto) 0.92 L (1.18-3.74) x10^3/uL Absolute Monos (auto) 0.94 H (0.24-0.86) x10^3/uL Absolute Nucleated RBC 0.00 (0.00-0.012) x10^3u/L Lymphocytes % 9.4 L (19.3-51.7) % Monocytes % 9.6 (4.7-12.5) % Eosinophils % 1.1 (0.7-5.8) % Basophils % 0.1 (0.1-1.2) % Absolute Granulocytes 7.79 H (1.56-6.13) x10^3/uL Basophils # 0.01 (0.01-0.08) x10^3/uL D-Dimer (0.0-0.50) mg/L Sodium 139 (135-145) mmol/L Potassium 4.7 (3.5-5.1) mmol/L Chloride 105 (98-107) mmol/L Carbon Dioxide 23 (22-30) mmol/L Anion Gap 15.7 H (5-15) MEQ/L BUN 19 H (7-17) mg/dL Creatinine 0.72 (0.52-1.04) mg/dL Estimated GFR 87.1 ML/MIN Glucose 106 (74-106) mg/dL Calcium 9.0 (8.4-10.2) mg/dL Magnesium 2.3 (1.6-2.3) mg/dL Total Bilirubin 0.60 (0.2-1.3) mg/dL AST 26 (14-36) U/L ALT 16 (0-35) U/L Alkaline Phosphatase 85 (38-126) U/L Troponin I (0.000-0.033) ng/mL Serum Total Protein 6.5 (6.3-8.2) g/dL Albumin 3.7 (3.5-5.0) g/dL Influenza Type A Ag (NEGATIVE) Influenza Type B Ag (NEGATIVE) RSV (PCR) (NEGATIVE) SARS-CoV-2 (PCR) (NEGATIVE) - Progress Progress: improved, re-examined Air Movement: good Progress Note: 06/08/24 14:42 My medical decision making and the assignment of moderate complexity to this patient's medical issue today is based on review of the patient's past medical history, review the patient's medication list, review the patient drug allergy list, history present illness and physical findings on examination. The workup in this patient includes CBC, CMP, magnesium level, twelve-lead EKG, troponin level, chest x-ray and viral swabs. Differential diagnosis includes was not limited to upper respiratory infection, pneumonia, viral illness, electrolyte abnormalities, arrhythmia, myocardial infarction 06/08/24 14:44 The final report of the chest x-ray was interpreted by the radiologist and I reviewed the impression. The impression states nonacute chest with chronic features. 06/08/24 15:43 I reviewed the patient's laboratory data results. Based on the laboratory data results, there are no acute, emergent medical issues. I had a long talk with the patient. Together, we decided that we would place her on an antibiotic. Although this could be viral it is possible this is a bacterial infection that is just beginning/early. She does have left shift on her white blood cell differential. She would prefer to be treated with an antibiotic then not because she is concerned that she will get worse. I will remotely send a prescription for cefdinir 300 mg orally twice a day for 7 days to her pharmacy. She will call her primary care physician's office tomorrow, 06/09/2024. 06/08/24 15:45 Patient states she has had Keflex in the past without any adverse effects/reactions Blood Culture(s) Obtained: No Antibiotics given: No Counseled pt/family regarding: lab results, diagnosis, need for follow-up, rad results Medical Desision Making - Diagnostic Testing Diagnostic test were ordered, analyzed, and reviewed by me: Yes Radiological Interpretation: Reviewed by me, Teleradiologist Report - Risk of complications The pt has a mod risk of morbidity or mortality based on: Need for prescription drug management - Departure Departure Disposition: Home Clinical Impression: Upper respiratory infection Condition: Stable Critical Care Time: No Referrals: AGUSTIN RAY MD [Primary Care Provider] - Follow up/PCP as directed Additional Instructions: Drink plenty of fluids. Avoid any exposure to smoke. Call your primary care physician's office tomorrow, 06/09/2024, to make arranges for follow-up appointment to be seen in the next 3 to 5 days. Take the antibiotics and other medications as prescribed. Prescriptions: Cefdinir 300 mg PO BID #14 cap
[2024-06-08 14:00] VITALS: TEMP 97.6
[2024-06-08 14:31] LABS: Absolute Neutrophil Ct (ANC) 7.79 x10^3/uL (1.56-6.13); BASOPHIL % 0.1 % (0.1-1.2); Basophil (Absolute #) 0.01 x10^3/uL (0.01-0.08); Eosinophil % 1.1 % (0.7-5.8); Eosinophil (Absolute #) 0.11 x10^3/uL (0.04-0.36); Hematocrit 37.8 % (34.1-44.9); Hemoglobin 12.3 g/dL (11.2-15.7); IMMATURE GRAN # 0.03 x10^3u/L (0.001-0.031); IMMATURE GRAN % 0.3 % (0.001-0.429); Lymphocyte (Absolute #) 0.92 x10^3/uL (1.18-3.74); Lymphocytes % 9.4 % (19.3-51.7); Mean Cell Volume 94.5 fL (79.4-94.8); Mean Corpuscular Hemoglobin 30.8 pg (25.6-32.2); Mean Corpuscular Hgb Concent. 32.5 g/dL (32.2-35.5); Mean Platelet Volume 9.6 fL (9.4-12.3); Monocyte (Absolute #) 0.94 x10^3/uL (0.24-0.86); Monocytes % 9.6 % (4.7-12.5); Neutrophil % 79.5 % (34.0-71.1); Platelet Count 223 x10^3/uL (182-369); Red Cell Distribution Width 13.6 % (11.7-14.4); White Blood Count 9.8 x10^3/uL (3.98-10.04)
--- NOTE | 2024-06-08 14:42 | XRAY ---
Indication: Cough. Chills. Comparison: July 09, 2022 Portable chest again demonstrates chronic right hemidiaphragm elevation with minimal bilateral mid to lower lung discoid atelectasis/scarring. Upper lungs clear. Heart not enlarged. Bony thorax intact again with osteopenia. Impression: Nonacute chest with chronic features.
[2024-06-08 14:50] LABS: ALBUMIN 3.7 g/dL (3.5-5.0); ANION GAP 15.7 MEQ/L (5-15); BILIRUBIN,TOTAL 0.6 mg/dL (0.2-1.3); Creatinine 1 0.72 mg/dL (0.52-1.04); EST GLOMERULAR FILTRATION RATE 87.1 ML/MIN; MAGNESIUM 2.3 mg/dL (1.6-2.3); Potassium 4.7 mmol/L (3.5-5.1); Total Protein 6.5 g/dL (6.3-8.2)
[2024-06-08 15:07] LABS: INFLUENZA A NEGATIVE (NEGATIVE); INFLUENZA B NEGATIVE (NEGATIVE); RESPIRATORY SYNCTIAL VIRUS NEGATIVE (NEGATIVE); SARS-CoV-2 Xpert Express NEGATIVE (NEGATIVE)
[2024-06-08 15:33] VITALS: BP 142/69
[2024-06-08 15:42] VITALS: PULSE 67; RESP 20; O2SAT 95
== END 2024-06-08 15:53 | disposition home or self-care (01) ==
LOC: ED 13:34
DX: J06.9 Acute upper respiratory infection, unspecified (principal); R07.9 Chest pain, unspecified; R50.9 Fever, unspecified; R05.1 Acute cough; E78.5 Hyperlipidemia, unspecified; I10 Essential (primary) hypertension; Z79.899 Other long term (current) drug therapy
CPT/HCPCS: 0241U; 36415; 71045; 80053; 83735; 84484; 85025; 85379; 93005; 93041; 99285; 99284